=== PATIENT | male | born 1970 | race Hispanic/Latino ===

== ENCOUNTER 2019-09-18 08:08 | Emergency (ER) | payer OTHER ==
[~2019-09-18] VITALS: Ht 185.4 cm; Wt 107.7 kg
[2019-09-18] MEDS ORDERED: ACETAMINOPHEN 500 MG TAB PO ONE (08:45)
[2019-09-18 08:54] LABS: BASO % 0.5 % (0.0-1.0); EOS # 0.2 10^3/uL (0.0-0.5); EOS % 2.6 % (0.0-3.0); HEMATOCRIT 43.7 % (42.0-52.0); HEMOGLOBIN 14.9 g/dl (13.5-17.5); MEAN CORPUSCULAR HEMOGLOBIN 29.7 pg (27.0-33.0); MEAN CORPUSCULAR HGB CONC 34.1 g/dl (32.0-36.5); MEAN CORPUSCULAR VOLUME 87.2 fl (80.0-96.0); MONO # 0.4 10^3/uL (0.0-0.8); MONO % 6.3 % (0.0-5.0); NEUTROPHILS % 60.3 % (36.0-66.0); PLATELET COUNT, AUTOMATED 218 10^3/uL (150-450); RED BLOOD COUNT 5.01 10^6/uL (4.30-6.10); WHITE BLOOD COUNT 6.5 10^3/uL (4.0-10.0)
[2019-09-18 09:16] LABS: BLOOD UREA NITROGEN 22 MG/DL (7-18); CALCIUM LEVEL 7.5 MG/DL (8.5-10.1); CARBON DIOXIDE LEVEL 25 MEQ/L (21-32); CHLORIDE LEVEL 112 MEQ/L (98-107); CPK CREATINE PHOSPHOKINASE 124 U/L (39-308); CREATININE FOR GFR 1.02 MG/DL (0.70-1.30); GLOMERULAR FILTRATION RATE > 60.0 (>56); GLUCOSE, FASTING 216 MG/DL (70-100); MB/CK RELATIVE INDEX 0.81 (< OR =4); NT-PRO BNP 38 PG/ML (<125); SODIUM LEVEL 143 MEQ/L (136-145)
--- NOTE | 2019-09-18 09:57 | REP ---
Right lower extremity Duplex Doppler venous ultrasound: Real time compression and duplex Doppler interrogation of the right lower extremity deep venous system is performed. The right common femoral, superficial femoral and popliteal veins are fully compressible with transducer pressure and demonstrate normal spontaneous and phasic flow, without evidence of deep venous thrombosis. Impression: No evidence of deep venous thrombosis of the right lower extremity femoral popliteal venous system. A complex popliteal cyst measures 3.9 x 0.7 X 3.0 cm. Electronically Signed by Juwan Womack MD 09/18/2019 09:48 A
[2019-09-18 10:26] VITALS: BP 141/96
[2019-09-18 11:01] LABS: HEMOGLOBIN A1c 7.1 %
== END 2019-09-18 10:31 | disposition home or self-care (01) ==
LOC: M ED 08:08
DX: M71.22 Synovial cyst of popliteal space [Baker], left knee (principal); E11.9 Type 2 diabetes mellitus without complications; R60.0 Localized edema; M79.604 Pain in right leg; M79.605 Pain in left leg; F17.210 Nicotine dependence, cigarettes, uncomplicated; Z87.828 Personal history of other (healed) physical injury and trauma

== ENCOUNTER 2019-11-28 10:18 | Emergency (ER) | payer OTHER ==
[~2019-11-28] VITALS: Ht 185.4 cm; Wt 111.6 kg
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
[2019-11-28 12:14] VITALS: BP 121/74
== END 2019-11-28 12:15 | disposition home or self-care (01) ==
LOC: M ED 10:18
DX: S28.0XXA Crushed chest, initial encounter (principal); W31.89XA Contact with other specified machinery, initial encounter; Y92.89 Other specified places as the place of occurrence of the external cause; Y93.89 Activity, other specified; Y99.0 Civilian activity done for income or pay; E11.9 Type 2 diabetes mellitus without complications

== ENCOUNTER → 2020-01-09 | Outpatient (REF) | payer OTHER ==
[2020-01-09 12:31] LABS: BASO % 0.5 % (0.0-1.0); EOS # 0.3 10^3/uL (0.0-0.5); EOS % 4.2 % (0.0-3.0); HEMATOCRIT 44.4 % (42.0-52.0); HEMOGLOBIN 14.8 g/dl (13.5-17.5); MEAN CORPUSCULAR HEMOGLOBIN 29.5 pg (27.0-33.0); MEAN CORPUSCULAR HGB CONC 33.3 g/dl (32.0-36.5); MEAN CORPUSCULAR VOLUME 88.6 fl (80.0-96.0); MONO # 0.5 10^3/uL (0.0-0.8); MONO % 7.5 % (0.0-5.0); NEUTROPHILS # 3.3 10^3/uL (1.5-8.5); NEUTROPHILS % 54.5 % (36.0-66.0); PLATELET COUNT, AUTOMATED 260 10^3/uL (150-450); RED BLOOD COUNT 5.01 10^6/uL (4.30-6.10)
[2020-01-09 12:47] LABS: HEMOGLOBIN A1c 6.5 %
[2020-01-09 13:04] LABS: ALBUMIN 1.4 GM/DL (3.2-5.2); ALT/SGPT 18 U/L (12-78); BILIRUBIN,TOTAL 0.3 MG/DL (0.2-1.0); BLOOD UREA NITROGEN 19 MG/DL (7-18); CALCIUM LEVEL 7.9 MG/DL (8.5-10.1); CARBON DIOXIDE LEVEL 26 MEQ/L (21-32); CHLORIDE LEVEL 111 MEQ/L (98-107); CHOLESTEROL LEVEL 393 MG/DL (<200); CHOLESTEROL RISK RATIO 6.661 (<5); CREATININE FOR GFR 1.03 MG/DL (0.70-1.30); FREE T4 0.88 NG/DL (0.76-1.46); GLOMERULAR FILTRATION RATE > 60.0 (>56); GLUCOSE, FASTING 108 MG/DL (70-100); HDL CHOLESTEROL 59 MG/DL (>40); LDL CHOLESTEROL 303 MG/DL (<100); NON-HDL-C 334 MG/DL; POTASSIUM SERUM 4.5 MEQ/L (3.5-5.1); SODIUM LEVEL 143 MEQ/L (136-145); TOTAL PROTEIN 4.2 GM/DL (6.4-8.2); TRIGLYCERIDES LEVEL 154 MG/DL (<150)
[2020-01-09 13:08] LABS: TOTAL 25(OH) VITAMIN D 13.3 NG/ML (30.0-100.0)
== END ==
LOC: M LAB REF 11:15
PROVIDERS: ATTEND Nurse Practitioner Family
DX: Z13.9 Encounter for screening, unspecified (principal); E55.9 Vitamin D deficiency, unspecified; E11.9 Type 2 diabetes mellitus without complications; F17.210 Nicotine dependence, cigarettes, uncomplicated; M25.511 Pain in right shoulder

== ENCOUNTER 2021-03-14 09:44 | Observation (INO) | payer OTHER ==
[~2021-03-14] VITALS: Ht 188 cm; Wt 98.7 kg
[~2021-03-14 09:44] MED LIST: BENA25CA4 PO; PRED20TA PO
--- OUTSIDE RECORDS SUMMARY | 2021-03-14 09:52 | CCD ---
Author Author [facility] Address Unknown Phone Unavailable Care Team Providers Care Urgent Care Name Role Phone Susan Park Unavailable Unavailable LETTIERE, Linda ALTAMIRANO Unavailable Unavailable LETTIERE, Linda JALLOH PA Unavailable Unavailable LETTIERE, Linda JALLOH PA Unavailable Unavailable LETTIERE, Linda JALLOH PA Unavailable Unavailable LETTIERE, Linda JALLOH PA Unavailable Unavailable LETTIERE, Linda JALLOH PA Unavailable Unavailable LETTIERE, Linda JALLOH PA Unavailable Unavailable LETTIERE, Linda JALLOH PA Unavailable Unavailable LETTIERE, Linda JALLOH PA Unavailable Unavailable LETTIERE, A YEIMI PA Unavailable Unavailable LETTIERE, A YEIMI PA Unavailable Unavailable LETTIERE, A YEIMI PA Unavailable Unavailable LETTIERE, A YEIMI PA Unavailable Unavailable LETTIERE, A YEIMI PA Unavailable Unavailable LETTIERE, A YEIMI PA Unavailable Unavailable LETTIERE, A YEIMI PA Unavailable Unavailable LETTIERE, A YEIMI PA Unavailable Unavailable LETTIERE, A YEIMI PA Unavailable Unavailable LETTIERE, A YEIMI PA Unavailable Unavailable LETTIERE, A YEIMI PA Unavailable Unavailable LETTIERE, A YEIMI PA Unavailable Unavailable LETTIERE, A YEIMI PA Unavailable Unavailable LETTIERE, A YEIMI PA Unavailable Unavailable LETTIERE, A YEIMI PA Unavailable Unavailable LETTIERE, A YEIMI PA Unavailable Unavailable LETTIERE, A YEIMI PA Unavailable Unavailable LETTIERE, A YEIMI PA Unavailable Unavailable LETTIERE, A YEIMI PA Unavailable Unavailable LETTIERE, A YEIMI PA Unavailable Unavailable LETTIERE, A YEIMI PA Unavailable Unavailable LETTIERE, A YEIMI PA Unavailable Unavailable Xavier, A Susan PRODUCT SAFETY CONSULTANT Unavailable Unavailable Xavier, A Susan PRODUCT SAFETY CONSULTANT Unavailable Unavailable Xavier, A Susan PRODUCT SAFETY CONSULTANT Unavailable Unavailable Xavier, A Susan PRODUCT SAFETY CONSULTANT Unavailable Unavailable Xavier, A Susan PRODUCT SAFETY CONSULTANT Unavailable Unavailable Xavier, A Susan PRODUCT SAFETY CONSULTANT Unavailable Unavailable Xavier, A Susan PRODUCT SAFETY CONSULTANT Unavailable Unavailable Xavier, A Susan PRODUCT SAFETY CONSULTANT Unavailable Unavailable Xavier, A Susan PRODUCT SAFETY CONSULTANT Unavailable Unavailable Xavier, A Susan PRODUCT SAFETY CONSULTANT Unavailable Unavailable Xavier, A Susan PRODUCT SAFETY CONSULTANT Unavailable Unavailable Xavier, A Susan PRODUCT SAFETY CONSULTANT Unavailable Unavailable Xavier, A Susan PRODUCT SAFETY CONSULTANT Unavailable Unavailable Xavier, A Susan PRODUCT SAFETY CONSULTANT Unavailable Unavailable Xavier, A Susan PRODUCT SAFETY CONSULTANT Unavailable Unavailable Xavier, A Susan PRODUCT SAFETY CONSULTANT Unavailable Unavailable Xavier, A Susan PRODUCT SAFETY CONSULTANT Unavailable Unavailable Xavier, A Susan PRODUCT SAFETY CONSULTANT Unavailable Unavailable Xavier, A Susan PRODUCT SAFETY CONSULTANT Unavailable Unavailable Xavier, A Susan PRODUCT SAFETY CONSULTANT Unavailable Unavailable Xavier, A Susan PRODUCT SAFETY CONSULTANT Unavailable Unavailable Xavier, A Susan PRODUCT SAFETY CONSULTANT Unavailable Unavailable Xavier, A Susan PRODUCT SAFETY CONSULTANT Unavailable Unavailable Xavier, A Susan PRODUCT SAFETY CONSULTANT Unavailable Unavailable Xavier, A Susan PRODUCT SAFETY CONSULTANT Unavailable Unavailable Xavier, A Susan PRODUCT SAFETY CONSULTANT Unavailable Unavailable Xavier, A Susan PRODUCT SAFETY CONSULTANT Unavailable Unavailable Xavier, A Susan PRODUCT SAFETY CONSULTANT Unavailable Unavailable Xavier, A Susan PRODUCT SAFETY CONSULTANT Unavailable Unavailable Xavier, A Susan PRODUCT SAFETY CONSULTANT Unavailable Unavailable Xavier, A Susan PRODUCT SAFETY CONSULTANT Unavailable Unavailable Re-disclosure Warning The records that you are about to access may contain information from federally-assisted alcohol or drug abuse programs. If such information is present, then the following federally mandated warning applies: This information has been disclosed to you from records protected by federal confidentiality rules (42 CFR part 2). The federal rules prohibit you from making any further disclosure of this information unless further disclosure is expressly permitted by the written consent of the person to whom it pertains or as otherwise permitted by 42 CFR part 2. A general authorization for the release of medical or other information is NOT sufficient for this purpose. The Federal rules restrict any use of the information to criminally investigate or prosecute any alcohol or drug abuse patient.The records that you are about to access may contain highly sensitive health information, the redisclosure of which is protected by Article 27-F of the [facility] Public Health law. If you continue you may have access to information: Regarding HIV / AIDS; Provided by facilities licensed or operated by the [facility] Office of Mental Health; or Provided by the [facility] Office for People With Developmental Disabilities. If such information is present, then the following [facility] mandated warning applies: This information has been disclosed to you from confidential records which are protected by state law. State law prohibits you from making any further disclosure of this information without the specific written consent of the person to whom it pertains, or as otherwise permitted by law. Any unauthorized further disclosure in violation of state law may result in a fine or snf sentence or both. A general authorization for the release of medical or other information is NOT sufficient authorization for further disc losure. Family History Family Member Name Family Member Gender Family Member Status Date o f Status Description Data Source(s) Unknown Male Problem MEDENT ([facility]) Encounters Encounter Providers Location Date Indications Data Source(s ) Outpatient Attender: YEIMI wall 03/04/2021 07:45:00 AM EST [facility] ([facility]) Outpatient Attender: YEIMI hecky 03/29/2020 01:50:00 PM EST [facility] ([facility]) Outpatient Attender: Susan MILLER 01/22/2020 08:4 9:59 AM EDT [facility] Outpatient Attender: GERMÁN MILLER 01/15/2020 04:00:08 P M EDT [facility] Immunizations Vaccine Date Status Description Data Source(s) COVID-19 VACCINE Martha 07/17/2020 12:00:00 AM EDT completed [employer]SIIS Vaccine Series Complete: YESThis Data wa s Submitted to [facility] Via [facility]. Medications Medication Brand Name Start Date Product Form Dose Route Admi nistrative Instructions Pharmacy Instructions Status Indications Reaction Description Data Source(s) No Active Medications 03/14/2021 12:00:00 AM EST active [facility] ([facility] [place]) No Active Medications 03/04/2021 12:00:00 AM EST completed [facility] ([facility], [facility]) Amoxicillin 875 MG Oral Tablet Amoxicillin 03/29/2020 12:00:00 AM EST active [facility] ([facility] [place]) Prednisone 20 MG Oral Tablet Prednisone 03/29/2020 12:00:00 AM EST active MED[facility] ([facility], [facility]) Insurance Providers Payer name Policy type / Coverage type Policy ID Covered alliance party ID Covered alliance party's relationship to simons Policy Simons Plan Information [facility] (in) Commercial [id number] Self [id number] [employer] (in) Commercial [id number] Self [id number] Managed Care - [facility] P [id number] S [id number] [facility] P [id number] M [id number] [facility] P [id number] M [id number] [facility] Commercial P [id number] M [id number] [facility] P [id number] M [id number] [facility] Complete Solar PLUS [id number] WI2 [id number] OTHER WORKERS COMPENSATION [id number] SP [id number] FX [employer] for Parents 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 [id number] WI2 [id number] [facility] O [id number] P [id number] Managed Care - [facility] P [id number] S [id number] [facility] P [id number] M [id number] [facility] [id number] SP [id number] [facility] PL[facility] [id number] WI2 [phone] Problems, Conditions, and Diagnoses Code Display Name Description Problem Type Effective Dates Data Source(s) 98872077 Essential hypertension Essential hypertension Problem 02/10/2020 12:00:00 AM EST [facility] ([facility], ) [id number] Pain in bilateral legs Pain in bilateral legs 01/15/2020 03:59:14 PM EDT [facility] 272.2 Mixed hyperlipidemia Mixed hyperlipidemia 01/14 03:59:14 PM EDT [facility] 401.9 Essential hypertension Essential hypertension 01/15/2020 03:59:14 PM EDT [facility] V65.8 Person consulting for explanation of exa mination or test findings Person consulting for explanation of examination or test findings 01/15/2020 03:59:14 PM EDT [facility] Surgeries/Procedures Procedure Description Date Indications Data Source(s) OFFICE OUTPATIENT VISIT 15 MINUTES 03/04/2021 12:00:00 AM EST [facility] ([facility], [facility]) Results ID Date Data Source [id number] 03/04/2021 12:00:00 AM EST [facility] Name Value Range Interpretation Code Description Data Myrna rce(s) Supporting Document(s) SARS-CoV2 Rapid Antigen Positive [facility] This lab was ordered by [facility] and reported by [facility]. ID Date Data Source [id number] 03/29/2020 12:00:00 AM EST [facility] Name Value Range Interpretation Code Description Data Myrna rce(s) Supporting Document(s) SARS coronavirus 2 Ag [facility] This lab was ordered by [facility] and reported by [facility]. ID Date Data Source [id number] 01/15/2020 02:37:07 PM EDT [facility] Measurements & CalculationsHeight: 73 inches (6 ft. 1 in.) 185.42 cm Weight: 245.8 pounds 111.73 kg Body Mass Index (BMI): 32.55BMI Interpretation: ObeseBody Surface Area (BSA): 2.35Weight Management Education Done (Nutrition/Physical Activity)Vital SignsTemperature: 97.7FPulse Rate: 93 beats/minuteRespiratory Rate: 16 respirat ions/minuteBlood Pressure: 150/95 O2 Saturation: 98% Vital Signs performed by: Brynn Montague MA, January 15, 2020 2:50 PMVital Signs performed by: Brynn Montague MA, January 15, 2020 2:50 PMInitial Intake Information From: patientRoom #: 9Infectious Disease / Travel ScreeningRecent travel for you or any close contacts? NoHave you had any close contact with anyone diagnosed with or under investigation for COVID-19 (coronavirus)? NoFever? NoRespiratory symptoms: cough, cold, congestion, shortness of breath, difficulty breathing? NoLoss of smell? NoLoss of taste? NoSmoking, Tobacco, Vaping or Smoke Exposure StatusSmoke Status: current every day smokerTobacco Use: YesAdv to Quit: YesDo you vape? NoPassive Smoke Exposure: YesPassive Smoke Exposure comments: coworkersHealthcare HistorySince your last office visit...Have you been admitted to the hospital? NoHave you been to an emergency room (ER) or urgent care clinic? NoHave you seen another healthcare provider? NoHave you seen a dentist? NoIntake performed by: Brynn Montague MA, January 15, 2020 2:40 PMRate Your HealthIn general, would you say your health is? GoodPain AssessmentAre you currently having any pain which... You would like your provider to address? No Affects your activity level? NoDepression Screening - PHQ-2Over the last two weeks, have you... Had little interest or pleasure in doing things? Not at all Been feeling down, depressed, or hopeless? Not at all PHQ-2 Score: 0Anxiety Screening - ARNIE-2Over the last two weeks, have you been... Feeling nervous, anxious, or on edge? Not at all Unable to stop or control worrying? Not at all ARNIE-2 Score: 0Food InsecurityWithin the past year...Did you worry whether your food would run out before you got money to buy more? Never trueWas there a time when the food you bought didn't last and you didn't have money to get more? Never trueScreening, Brief Intervention, & Referral to Treatment (SBIRT)Pre-Screening Questions How many times have you have 5 or more drinks in a day? 0How many times have you used an illegal drug or used a prescription medication for a non-medical reason? 0Patient History Medical History:No known medical historySurgical History:Hernia Mesh surgery Umbilica, groinMetal plate left side of face30 screws.Family History:No known family historyCancer - Unknown (Father)Paternal Uncles - Kidney diseaseSocial/Personal History: Advised to Quit/Tobacco Education: YesChief Complaintfollow-up visit labs room 9History of Present Illness (HPI)49 YO male here for lab follow up. Pt reports swelling in lower extremities. Pt states there is a history of kidney disease in his family. Pt would like referral for colonoscopy. Pt states healthy diet and physicalk activities. Pt refused flu vaccine today. HPI performed by: Susan DUNLAP, January 15, 2020 3:46 PMTransitions of Care InboundProblem ReviewProblem List was reviewed and/or updated during this visit.Medication Reconciliation & ReviewMedication List was reviewed and/or updated during this visit, including review of any mkic-mge-pclsleq medications, herbal therapies, and/or supplements.Allergy ReviewAllergy List was reviewed and/or updated during this visit.Adult Preventive CareProvider Calculated and Reviewed all Clinical Protocols for patient today. Screening Tobacco Screening: Smoking Status: current every day smoker (01/15/2020) Tobacco Use: Currently (01/15/2020) Advised to Quit: Yes (01/15/2020)Labs/Meds/Other Counseling-Nutrition and Physical Activity:BMI Interpretation: Obese (01/15/2020) Counseling: Done (01/15/2020) Physical Activity: Done (01/15/2020)Cancer Screening Review of Systems General: Denies loss of appetite, chills, dizziness, fatigue, fever, continued fever, headache, feeling ill, sweats, night sweats, sleep disturbances, weight loss. Eyes: Denies blurring of vision, double vision, irritation, discharge, vision loss, eye pain, eye swelling, droopy eyelid, sensitivity to light, redness, itching. Ears/Nose/Throat: Denies earache, ear discharge, ringing in ears, decreased hearing, nasal congestion, nosebleeds, runny nose, sore throat, hoarseness, difficulty swallowing, dry mouth, tooth pain, bleeding gums, swollen glands. Cardiovascular: Denies chest pain, palpitations, feeling faint, trouble breathing w/exertion, SOB upon lying down, SOB at night, peripheral edema, elevated blood pressure, decreased heart rate. Respiratory: Denies cough, difficulty breathing, shortness of breath, excessive sputum, coughing up blood, wheezing, chest pain. Gastrointestinal: Denies nausea, vomiting, bleeding, burning, itching, irritation, cramps, diarrhea, constipation. Genitourinary: Denies urinary incontinence, pain with urination, burning with urination, urinary frequency, urinary hesitancy, urinary urgency, urinary urgency at night, incomplete emptying, blood in urine. Musculoskeletal: Complains of leg pain. Denies back pain, joint pain, other pain-see comments, joint swelling, body aches, muscle aches, muscle cramps, muscle weakness, stiffness, recent injury. Skin: Denies rash, hives, redness, itching, dryness, nail changes, suspicious lesions, athlete's foot, rash on palms, rash on bottom of feet. Neurologic: Denies muscle impairment, weakness, numbness/tingling, seizures, slurred speech, feeling faint, tremors, vertigo, paralysis on one side, paralysis on both sides. Psychiatric: Denies depression, anxiety, memory loss, mental disturbance, suicidal ideation, homicidal ideation, hallucinations, paranoia, feeling stressed, hearing voices. Endocrine: Denies cold intolerance, heat intolerance, excessive thirst, excessive hunger, excessive urination, weight loss, weight gain. Heme/Lymphatic: Denies abnormal bruising, bleeding, enlarged lymph nodes. Physical ExamGeneral Appearance: well nourished, well hydrated, no acute distressEyes, External: conjunctivae and lids normal, EOMIRespiratory, Auscultation: clear to auscultation bilaterally; no rales, rhonchi, or wheezesRespiratory, Effort: no intercostal retractions or use of accessory musclesCardiovascular, Auscultation: S1, S2 audible; no murmur, rub, or gallop; RRRPeripheral Circulation: +2 edma, bilat LE Abdomen: soft, non-tender, no masses, bowel sounds normalGait & Station: normalSkin, Inspection: no rashes, lesions, or ulcerationsOrientation: oriented to time, place, and personMood & Affect: no depression, anxiety, or agitationJudgment & Insight: intactCare Management Plan Transitions of CareInboundRate Your HealthIn general, would you say your health is? GoodAssessment & Plan Problems:Added: Pain in bilateral legs (WOC40-P35.604) Assessment: Instructions: We have made a referral to a vascular specialist for you today. We will contact you to set this up.Mixed hyperlipidemia (ICD-272.2) (NYF08-F21.2) Assessment: Instructions: cholesterol level elevated, we have sent a prescription to your pharmacy to start cholesterol medication. Please take medication as prescribed. Please report any major side effects. Please try to maintain lifestyle changes to include healthy diet and physical activities. Please try to limit sugars, carbohydrates, sodium and fats in your diet. Please try to maintain at least 30 minutes per day of physical activities.Essential hypertension (ICD-401.9) (ZPX39-P76) Assessment: Instructions: We have sent a prescription to start Lisinopril for your blood pressure. Please take medication as prescrbed. Please report any major side effects.Person consulting for explanation of examination or test findings (ICD-V65.8) (IMP21-J27.2) Assessment: Instructions: We have reviewed your lab results with you today.Essential hypertension (ICD-401.9) (SKI36-C17) Assessment: BP elevated. Pt asymtomatic at this time. script sent to start lisinopril.Assessed:Bilateral localized swelling of lower legs (ICD10- R22.43) Assessment: Instructions: Pain in bilateral legs: We have made a referral to a vascular specialist for you today. We will contact you to set this up.lease try to avoid added sodium in your diet. Please try to keep legs elevated. Please try to maintain adequate intake of water daily.Type 2 diabetes mellitus without complications (ADZ46-S76.9) Assessment: Instructions: Your HGA1c is 6.5. this indicates well managed type 2 diabetes. Please continue lifestyle changes to include healthy diet band physical activities. Please try to limit sugars, carbohydrates, sodium and fats in your diet.Patient Instructions/Care Plan: Pain in bilateral legs: We have made a referral to a vascular specialist for you today. We will contact you to set this up.Bilateral localized swelling of lower legs: Pain in bilateral legs: We have made a referral to a vascular specialist for you today. We will contact you to set this up.lease try to avoid added sodium in your diet. Please try to keep legs elevated. Please try to maintain adequate intake of water daily.Mixed hyperlipidemia: cholesterol level elevated, we have sent a prescription to your pharmacy to start cholesterol medication. Please take medication as prescribed. Please report any major side effects. Please try to maintain lifestyle changes to include healthy diet and physical activities. Please try to limit sugars, carbohydrates, sodium and fats in your diet. Please try to maintain at least 30 minutes per day of physical activities.Essential hypertension: We have sent a prescription to start Lisinopril for your blood pressure. Please take medication as prescrbed. Please report any major side effects.Person consulting for explanation of examination or test findings: We have reviewed your lab results with you today.Type 2 diabetes mellitus without complications: Your HGA1c is 6.5. this indicates well managed type 2 diabetes. Please continue lifestyle changes to include healthy diet band physical activities. Please try to limit sugars, carbohydrates, sodium and fats in your diet. Plan developed in collaboration with patient and/or familyMedications:LISINOPRIL 5 MG ORAL TABLETATORVASTATIN CALCIUM 40 MG ORAL TABLETMedication Changes:New Prescription:ATORVASTATIN CALCIUM 40 MG ORAL TABLET-take one tablet by mouth daily at nights. Qty: 30[Tablet] Refills: 2 Method: ElectronicLISINOPRIL 5 MG ORAL TABLET-take one tablet by mouth daily Qty: 30[Tablet] Refills: 2 Method: ElectronicAllergies:No Known Allergies (updated 07/26/2018) Orders:Gastroenterology Consult [CPT-73349] Other Referral [[id number]] COMP METABOLIC PANEL [CPT-75108] CBC W/DIFF [CPT-87314] HgBA1c [CPT-89866] LIPID PANEL [CPT-32610] Vitamin D 250H Unspecified [CPT-84842] URINALYSIS [CPT-36731] Urine Culture [CPT-72256] PROSTATE CANCER SCREENING; PSA TEST [CPT-G0103] Adult - Ofc Vst, EST, Level IV [CPT-03893] Follow-Up Return to clinic: 3 month for follow up. Clinical Visit Summary CompletedMedications:LISINOPRIL 5 MG ORAL TABLET (LISINOPRIL) take one tablet by mouth daily #30[Tablet] x 2 Route:ORAL Entered and Authorized by: Susan DUNLAP Method used: Electronically to [facility] ([employer]) [id number] [place] [address] Note to Pharmacy: Route: ORAL; Indications: ESSENTIAL HYPERTENSION RxID: [id number] CALCIUM 40 MG ORAL TABLET (ATORVASTATIN CALCIUM) take one tablet by mouth daily at nights. #30[Tablet] x 2 Route:ORAL Entered and Authorized by: Susan DUNLAP Method used: Electronically to [facility] ([employer]) [id number] [place] [address] Note to Pharmacy: Route: ORAL; Indications: MIXED HYPERLIPIDEMIA RxID: [id number] signed by Susan DUNLAP on 01/22/2020 at 8:49 AM Name Value Range Interpretation Code Description Data Myrna rce(s) Supporting Document(s) Procedure Social History Code Duration Value Status Description Data Source(s ) Smoking 03/29/2020 12:00:00 AM EST Patient has never smoked co mpleted Patient has never smoked [facility] ([facility]) Vital Signs ID Date Data Source UNK Name Value Range Interpretation Code Description Data Source(s) Systolic blood pressure 121 mm[Hg] 121 mm[Hg] M EDENT ([facility], [facility]) Diastolic blood pressure 83 mm[Hg] 83 mm[Hg] [facility] ([facility]) Heart rate 104 /min 104 /min [facility] ([facility]) Respiratory rate 22 /min 22 /min [facility] ( [facility], [facility]) Oxygen saturation in Arterial blood by Pulse oximetry 98 % 98 % [facility] ([facility], [facility]) Body temperature 99.5 [degF] 99.5 [degF] [facility] ([facility], [facility]) Body weight 210.00 [lb_av] 210.00 [lb_av] MEDEN T ([facility], [facility]) Body height 74 [in_i] 74 [in_i] [facility] 6'2" Body mass index (BMI) [Ratio] 27.0 kg/m2 27.0 k g/m2 [facility]) Systolic blood pressure 134 mm[Hg] 134 mm[Hg] M EDENT ([facility], [facility]) Diastolic blood pressure 93 mm[Hg] 93 mm[Hg] [facility] [facility] ([facility], [facility]) Heart rate 96 /min 96 /min [facility] ([facility] [place], [facility]) Respiratory rate 18 /min 18 /min [facility] ( [facility], [facility]) Oxygen saturation in Arterial blood by Pulse oximetry 97 % 97 % [facility] ([facility], [facility]) Body temperature 97.9 [degF] 97.9 [degF] [facility]) Body weight 220.00 [lb_av] 220.00 [lb_av] MEDEN T ([facility], [facility]) Body height 74 [in_i] 74 [in_i] [facility] ([facility] 6'2" Body mass index (BMI) [Ratio] 28.2 kg/m2 28.2 k g/m2 [facility] ([facility], [facility]) Systolic blood pressure 154 mm[Hg] 154 mm[Hg] M EDENT ([facility], [facility]) Diastolic blood pressure 103 mm[Hg] 103 mm[Hg] [facility] ([facility] [place], [facility]) Heart rate 94 /min 94 /min [facility] ([facility] [place], [facility]) Respiratory rate 16 /min 16 /min [facility] Oxygen saturation in Arterial blood by Pulse oximetry 98 % 98 % [facility] ([facility]) Body temperature 98.3 [degF] 98.3 [degF] [facility] ([facility]) Body weight 245.00 [lb_av] 245.00 [lb_av] MED[facility] T ([facility]) Body height 74 [in_i] 74 [in_i] [facility] ([facility]) 6'2" Body mass index (BMI) [Ratio] 31.5 kg/m2 31.5 k g/m2 [facility] ([facility]) Body weight 112.153 kg 112.153 kg [facility] ([facility], ) [place] body weight 190 [lb_av] 190 [lb_av] MEDEN T ([facility], ) Body mass index (BMI) [Ratio] 31.7 kg/m2 31.7 k g/m2 [facility] ([facility], ) Body weight 247.25 [lb_av] 247.25 [lb_av] [facility], ) Body height 74 [in_i] 74 [in_i] [facility] ([facility], ) 6'2" Diastolic blood pressure 72 mm[Hg] 72 mm[Hg] [facility] ([facility], ) Systolic blood pressure 154 mm[Hg] 154 mm[Hg] Juan COBURN ([facility], )
--- OUTSIDE RECORDS SUMMARY | 2021-03-14 09:52 | CCD | Continuity of Care Document ---
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 Name Role Phone [employer] AUTM [phone] Problems Description No Information Available Social History Type Date Description Comments Sex Unknown ETOH Use Denies alcohol use Tobacco Use Start: Unknown Patient is a current smoker, smo kes every day 1 PPD Smoking Status Reviewed: 03/29/20 Patient is a current smoker, smokes every day 1 PPD Allergies and adverse reactions Description No Known Drug Allergies Medications Active Medications SIG Qnty Indications Ordering Provide r Date Formula 44 Cough And Cold Unknown History Medications No Active Medications Unknown - 03/04/2021 Immunizations Description No Information Available Vital Signs Date Vital Result Comment 03/04/2021 10:06am BP Systolic 134 mmHg BP Diastolic 93 mmHg Heart Rate 96 /min Respiratory Rate 18 /min O2 % BldC Oximetry 97 % Body Temperature 97.9 F Weight 220.00 lb Height 74 inches 6'2" BMI (Body Mass Index) 28.2 kg/m2 Pain Level 5 03/29/2020 4:09pm BP Systolic 154 mmHg BP Diastolic 103 mmHg Heart Rate 94 /min Respiratory Rate 16 /min O2 % BldC Oximetry 98 % Body Temperature 98.3 F Weight 245.00 lb Height 74 inches 6'2" BMI (Body Mass Index) 31.5 kg/m2 Pain Level 5 Results Description No Information Available Procedures Date Code Description Status 03/04/2021 51365 Office/Outpatient Established Lo w MDM 20-29 Min Completed Medical Devices Description No Information Available Encounters Type Date Location Provider Dx Diagnosis Office Visit 03/04/2021 8:45a Main Office ADARSH Clarke J06 .9 Acute upper respiratory infection, unspecified U07.1 Covid-19 Assessments Date Code Description Provider 03/04/2021 J06.9 Acute upper respiratory infectio n, unspecified ADARSH Clarke 03/04/2021 U07.1 Covid-19 ADARSH Adair Plan of Treatment No Information Available Functional Status Description No Information Available Mental Status Description No Information Available Referrals Description No Information Available
--- OUTSIDE RECORDS SUMMARY | 2021-03-14 09:52 | CCD | Continuity of Care Document ---
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
[2021-03-14 14:49] LABS: BASO % 0.2 % (0.0-1.0); EOS # 0.1 10^3/uL (0.0-0.5); EOS % 1.4 % (0.0-3.0); HEMATOCRIT 38.1 % (42.0-52.0); HEMOGLOBIN 12.7 g/dl (13.5-17.5); LYMPH # 1.5 10^3/uL (1.5-5.0); LYMPH % 17.8 % (24.0-44.0); MEAN CORPUSCULAR HEMOGLOBIN 28.9 pg (27.0-33.0); MEAN CORPUSCULAR HGB CONC 33.3 g/dl (32.0-36.5); MEAN CORPUSCULAR VOLUME 86.8 fl (80.0-96.0); MONO # 0.9 10^3/uL (0.0-0.8); MONO % 10.5 % (2.0-8.0); NEUTROPHILS # 6.1 10^3/uL (1.5-8.5); NEUTROPHILS % 69.8 % (36.0-66.0); PLATELET COUNT, AUTOMATED 244 10^3/uL (150-450); RED BLOOD COUNT 4.39 10^6/uL (4.30-6.10); WHITE BLOOD COUNT 8.7 10^3/uL (4.0-10.0)
--- OUTSIDE RECORDS SUMMARY | 2021-03-14 14:55 | CCD ---
Author Author [facility] Organization [facility] Address Unknown Phone Unavailable Care Team Providers Care Business Management Specialist Name Role Phone Susan Park Unavailable Unavailable LETTIERE, Linda ALTAMIRANO Unavailable Unavailable LETTIERE, Linda ALTAMIRANO Unavailable Unavailable LETTIERE, Linda JALLOH PA Unavailable Unavailable LETTIERE, Linda JALLOH PA Unavailable Unavailable LETTIERE, Linda JALLOH PA Unavailable Unavailable LETTIERE, Linda ALTAMIRANO Unavailable Unavailable LETTIERE, Linda ALTAMIRANO Unavailable Unavailable [...] LETTIERE, A YEIMI PA Unavailable Unavailable LETTIERE, Linda JALLOH PA Unavailable Unavailable LETTIERE, A YEIMI PA Unavailable Unavailable LETTIERE, Linda JALLOH PA Unavailable Unavailable LETTIERE, Linda JALLOH PA Unavailable Unavailable LETTIERE, Linda JALLOH PA Unavailable Unavailable LETTIERE, A YEIMI PA Unavailable Unavailable LETTIERE, A YEIMI PA Unavailable Unavailable LETTIERE, A YEIMI PA Unavailable Unavailable LETTIERE, A YEIMI PA Unavailable Unavailable LETTIERE, A YEIMI PA Unavailable Unavailable LETTIERE, A YEIMI PA Unavailable Unavailable LETTIERE, A YEIMI PA Unavailable Unavailable MEET, MARK PA Unavailable Unavailable MEET, MARK PA Unavailable Unavailable MEET, MARK PA Unavailable Unavailable MEET, MARK PA Unavailable Unavailable MEET, MARK PA Unavailable Unavailable MEET, MARK PA Unavailable Unavailable MEET, MARK PA Unavailable Unavailable MEET, MARK PA Unavailable Unavailable MEET, MARK PA Unavailable Unavailable MEET, MARK PA Unavailable Unavailable MEET, MARK PA Unavailable Unavailable MEET, MARK PA Unavailable Unavailable MEET, MARK PA Unavailable Unavailable MEET, MARK PA Unavailable Unavailable MEET, MARK PA Unavailable Unavailable MEET, MARK PA Unavailable Unavailable MEET, MARK PA Unavailable Unavailable MEET, MARK PA Unavailable Unavailable MEET, MARK PA Unavailable Unavailable MEET, MARK PA Unavailable Unavailable MEET, MARK PA Unavailable Unavailable MEET, MARK PA Unavailable Unavailable MEET, MARK PA Unavailable Unavailable MEET, MARK PA Unavailable Unavailable MEET, MARK PA Unavailable Unavailable MEET, MARK PA Unavailable Unavailable MEET, MARK PA Unavailable Unavailable MEET, MARK PA Unavailable Unavailable MEET, MARK PA Unavailable Unavailable MEET, MARK PA Unavailable Unavailable MEET, MARK PA Unavailable Unavailable MEET, MARK PA Unavailable Unavailable MEET, MARK PA Unavailable Unavailable MEET, MARK PA Unavailable Unavailable MEET, MARK PA Unavailable Unavailable MEET, MARK PA Unavailable Unavailable Xavier, A Susan STAIN WIPER Unavailable Unavailable Xavier, A Susan STAIN WIPER Unavailable Unavailable Xavier, A Susan STAIN WIPER Unavailable Unavailable Xavier, A Susan STAIN WIPER Unavailable Unavailable Xavier, A Susan STAIN WIPER Unavailable Unavailable Xavier, A Susan STAIN WIPER Unavailable Unavailable Xavier, A Susan STAIN WIPER Unavailable Unavailable Xavier, A Ssuan STAIN WIPER Unavailable Unavailable Xavier, A Susan STAIN WIPER Unavailable Unavailable Xavier, A Susan STAIN WIPER Unavailable Unavailable Xavier, A Susan STAIN WIPER Unavailable Unavailable Xavier, A Susan STAIN WIPER Unavailable Unavailable Xavier, A Susan STAIN WIPER Unavailable Unavailable Xavier, A Susan STAIN WIPER Unavailable Unavailable Xavier, A Susan STAIN WIPER Unavailable Unavailable Xavier, A Susan STAIN WIPER Unavailable Unavailable Xavier, A Susan STAIN WIPER Unavailable Unavailable Xavier, A Susan STAIN WIPER Unavailable Unavailable Xavier, A Susan STAIN WIPER Unavailable Unavailable Xavier, A Susan STAIN WIPER Unavailable Unavailable Xavier, A Susan STAIN WIPER Unavailable Unavailable Xavier, A Susan STAIN WIPER Unavailable Unavailable Xavier, A Susan STAIN WIPER Unavailable Unavailable Xavier, A Ussan STAIN WIPER Unavailable Unavailable Xavier, A Susan STAIN WIPER Unavailable Unavailable Xavier, A Susan STAIN WIPER Unavailable Unavailable Xavier, A Susan STAIN WIPER Unavailable Unavailable Xavier, A Susan STAIN WIPER Unavailable Unavailable Xavier, A Susan STAIN WIPER Unavailable Unavailable Xavier, A Susan STAIN WIPER Unavailable Unavailable Xavier, A Susan STAIN WIPER Unavailable Unavailable Re-disclosure Warning The records that [...] is protected by Article 27-F of the [facility] Public Health law. If you continue you may have access to information: Regarding HIV / AIDS; Provided by facilities licensed or operated by the [facility] Office of Mental Health; or Provided by the [facility] Office for People With Developmental Disabilities. If such information is present, then the following [facility] mandated warning applies: This information has been [...] law may result in a fine or group home sentence or both. A general authorization for the release of medical or other information is NOT sufficient authorization for further disc losure. Family History Family Member Name Family Member Gender Family Member Status Date o f Status Description Data Source(s) Unknown Male Problem [facility] ([facility]) Encounters Encounter Providers Location Date Indications Data Source(s ) Outpatient Attender: MARK Crespo Prima ry 03/14/2021 07:10:00 AM EST [facility] ([facility] Outpatient Attender: YEIMI Crespo Prim mae 03/04/2021 07:45:00 AM EST [facility] ([facility]) Outpatient Attender: YEIMI Crespo Prim mae 03/29/2020 01:50:00 PM EST [facility] ([facility]) [facility]: [facility] 01/22/2020 08:4 9:59 AM EDT [facility] Outpatient Attender: GERMÁN Park [facility] 01/15/2020 04:00:08 P M EDT [facility] Immunizations Vaccine Date Status Description Data Source(s) COVID-19 VACCINE Martha 07/17/2020 12:00:00 AM EDT completed [facility] Vaccine Series Complete: YESThis Data wa s Submitted to [facility] Via [facility]. Medications Medication Brand Name Start Date Product Form Dose Route Admi nistrative Instructions Pharmacy Instructions Status Indications Reaction Description Data Source(s) No Active Medications 03/14/2021 12:00:00 AM EST active [facility] ([facility], [facility]) No Active Medications 03/04/2021 12:00:00 AM EST completed [facility] ([facility], [facility]) Amoxicillin 875 MG Oral Tablet Amoxicillin 03/29/2020 12:00:00 AM EST active [facility] ([facility]) Prednisone 20 MG Oral Tablet Prednisone 03/29/2020 12:00:00 AM EST active [facility] ([facility]) Insurance Providers Payer name Policy type / Coverage type Policy ID Covered alliance party ID Covered alliance party's relationship to simons Policy Simons Plan Information [facility] (pr) Commercial [id number] Self [id number] [facility] (pr) Commercial [id number] Self [id number] Managed Care - [facility] P [id number] S [id number] [facility] P [id number] M [id number] [facility] P [id number] M [id number] [facility] Commercial P [id number] M [id number] [facility] P [id number] M [id number] [facility] CHOICE PLUS [id number] WI2 [id number] OTHER WORKERS COMPENSATION [id number] SP [id number] FX CAPRAClipMine CAR [facility] [id number] SP [id number] [facility] [id number] WI2 [id number] [employer] MANAGEMENT KENNETH [id number] SP [id number] [facility] [id number] WI2 97 [id number] [facility] [id number] WI2 [id number] [facility] [id number] WI2 97 [id number] [facility] [id number] WI2 [id number] [facility] O [id number] P [id number] Managed Care - [facility] P [id number] S [id number] [facility] P [id number] M [id number] [facility] [id number] SP [id number] [facility] [id number] WI2 [id number] Problems, Conditions, and Diagnoses Code Display Name Description Problem Type Effective Dates Data Source(s) [id number] Essential hypertension Essential hypertension Problem 02/10/2020 12:00:00 AM LEILA ALEJADNRE ([facility], ) [id number] Pain in bilateral legs Pain in bilateral legs 01/15/2020 03:59:14 PM EDT [facility] 272.2 Mixed hyperlipidemia Mixed hyperlipidemia 01/14 03:59:14 PM EDT [facility] 401.9 Essential hypertension Essential hypertension 01/15/2020 03:59:14 PM EDT [facility] V65.8 Person consulting for explanation of exa mination or test findings Person consulting for explanation of examination or test findings 01/15/2020 03:59:14 PM EDT [facility] Surgeries/Procedures Procedure Description Date Indications Data Source(s) OFFICE OUTPATIENT VISIT 15 MINUTES 03/14/2021 12:00:00 AM EST [facility] ([facility]) OFFICE OUTPATIENT VISIT 15 MINUTES 03/04/2021 12:00:00 AM EST [facility] ([facility]) Results ID Date Data Source [id number] 03/04/2021 12:00:00 AM EST [facility] Name Value Range Interpretation Code Description Data Myrna rce(s) Supporting Document(s) SARS-CoV2 Rapid Antigen Positive [facility] This lab was ordered by [facility] and reported by [facility]. ID Date Data Source [id number] 03/29/2020 12:00:00 AM EST [facility] Name Value Range Interpretation Code Description Data Myrna rce(s) Supporting Document(s) SARS coronavirus 2 Ag [facility] This lab was ordered by [facility] and reported by [facility]. ID Date Data Source [id number] 01/15/2020 02:37:07 PM EDT [facility] Measurements & CalculationsHeight: 73 inches (6 ft. 1 in.) 185.42 cm Weight: 245.8 pounds 111.73 kg Body Mass Index (BMI): 32.55BMI Interpretation: ObeseBody Surface Area (BSA): 2.35Weight Management Education Done (Nutrition/Physical Activity)Vital SignsTemperature: 97.7FPulse Rate: 93 beats/minuteRespiratory Rate: 16 respirat ions/minuteBlood Pressure: 150/95 O2 Saturation: 98% Vital Signs performed by: Brynn Montague MA, January 15, 2020 2:50 PMVital Signs performed by: rBynn Montague MA, January 15, 2020 2:50 PMInitial [...] during this visit, including review of any [id number]-fir-[id number] medications, herbal therapies, and/or supplements.Allergy ReviewAllergy List [...] & Plan Problems:Added: Pain in bilateral legs (HZG18-M10.604) Assessment: Instructions: We have made a referral to a vascular specialist for you today. We will contact you to set this up.Mixed hyperlipidemia (ICD-272.2) (WFP00-W21.2) Assessment: Instructions: cholesterol level elevated, we have [...] per day of physical activities.Essential hypertension (ICD-401.9) (XEE30-E82) Assessment: Instructions: We have sent a prescription to start Lisinopril for your blood pressure. Please take medication as prescrbed. Please report any major side effects.Person consulting for explanation of examination or test findings (ICD-V65.8) (VXT79-S30.2) Assessment: Instructions: We have reviewed your lab results with you today.Essential hypertension (ICD-401.9) (HUL25-V77) Assessment: BP elevated. Pt asymtomatic at this [...] water daily.Type 2 diabetes mellitus without complications (YDM13-H82.9) Assessment: Instructions: Your HGA1c is 6.5. this [...] ElectronicAllergies:No Known Allergies (updated 07/26/2018) Orders:Gastroenterology Consult [CPT-53458] Other Referral [[id number]] COMP METABOLIC PANEL [CPT-93010] CBC W/DIFF [CPT-31372] HgBA1c [CPT-05108] LIPID PANEL [CPT-67524] Vitamin D 250H Unspecified [CPT-26457] URINALYSIS [CPT-71064] Urine Culture [CPT-18049] PROSTATE CANCER SCREENING; PSA TEST [CPT-G0103] Adult - Ofc Vst, EST, Level IV [CPT-92082] Follow-Up Return to clinic: 3 month for follow up. Clinical Visit Summary CompletedMedications:LISINOPRIL 5 MG ORAL TABLET (LISINOPRIL) take one tablet by mouth daily #30[Tablet] x 2 Route:ORAL Entered and Authorized by: Susan DUNLAP Method used: Electronically to [id number]* (retail) [id number] [place] [address] Note to Pharmacy: Route: ORAL; Indications: ESSENTIAL HYPERTENSION RxID: [id number] CALCIUM 40 MG ORAL TABLET (ATORVASTATIN CALCIUM) take one tablet by mouth daily at nights. #30[Tablet] x 2 Route:ORAL Entered and Authorized by: Susan DUNLAP Method used: Electronically to [id number]* [employer]) [address] [place] [address] Note to Pharmacy: Route: ORAL; Indications: MIXED HYPERLIPIDEMIA RxID: [id number] signed by Susan DUNLAP on 01/22/2020 at 8:49 AM Name Value Range Interpretation Code Description Data Myrna rce(s) Supporting Document(s) Procedure Social History Code Duration Value Status Description Data Source(s ) Smoking 03/29/2020 12:00:00 AM EST Patient has never smoked co mpleted Patient has never smoked [facility] ([facility]) Vital Signs ID Date Data Source UNK Name Value Range Interpretation Code Description Data Source(s) Body mass index (BMI) [Ratio] 27.0 kg/m2 27.0 k g/m2 [facility] ([facility]) Body height 74 [in_i] 74 [in_i] [facility] ([facility]) 6'2" Body weight 210.00 [lb_av] 210.00 [lb_av] MEDEN T ([facility]) Systolic blood pressure 121 mm[Hg] 121 mm[Hg] M EDENT ([facility]) Diastolic blood pressure 83 mm[Hg] 83 mm[Hg] [facility] ([facility]) Heart rate 104 /min 104 /min [facility] ([facility]) Respiratory rate 22 /min 22 /min [facility] ( [facility]) Oxygen saturation in Arterial blood by Pulse oximetry 98 % 98 % [facility] Body temperature 99.5 [degF] 99.5 [degF] [facility]) Systolic blood pressure 134 mm[Hg] 134 mm[Hg] M EDENT ([facility], [facility]) Diastolic blood pressure 93 mm[Hg] 93 mm[Hg] [facility]) Heart rate 96 /min 96 /min [facility]) Respiratory rate 18 /min 18 /min [facility] ( [facility]) Oxygen saturation in Arterial blood by Pulse oximetry 97 % 97 % [facility] ([facility], [facility]) Body temperature 97.9 [degF] 97.9 [degF] [facility], [facility]) Body weight 220.00 [lb_av] 220.00 [lb_av] MEDEN T ([facility], [facility]) Body height 74 [in_i] 74 [in_i] [facility] ([facility], [facility]) 6'2" Body mass index (BMI) [Ratio] 28.2 kg/m2 28.2 k g/m2 [facility] ([facility], [facility]) Systolic blood pressure 154 mm[Hg] 154 mm[Hg] [facility]) Diastolic blood pressure 103 mm[Hg] 103 mm[Hg] [facility]) Heart rate 94 /min 94 /min [facility]) Respiratory rate 16 /min 16 /min [facility] ( [facility]) Oxygen saturation in Arterial blood by Pulse oximetry 98 % 98 % [facility] ([facility], [facility]) Body temperature 98.3 [degF] 98.3 [degF] [facility] ([facility], [facility]) Body weight 245.00 [lb_av] 245.00 [lb_av] MEDEN T ([facility], [facility]) Body height 74 [in_i] 74 [in_i] [facility]) 6'2" Body mass index (BMI) [Ratio] 31.5 kg/m2 31.5 k g/m2 [facility] ([facility], [facility]) Body weight 112.153 kg 112.153 kg [facility] ([facility], ) [place] body weight 190 [lb_av] 190 [facility]_av] [facility] Body mass index (BMI) [Ratio] 31.7 kg/m2 31.7 k g/m2 [facility] ([facility], ) Body weight 247.25 [lb_av] 247.25 [lb_av] [facility] Body height 74 [in_i] 74 [in_i] [facility] ([facility], ) 6'2" Diastolic blood pressure 72 mm[Hg] 72 mm[Hg] [facility], ) Systolic blood pressure 154 mm[Hg] 154 mm[Hg] Juan COBURN ([facility], )
[2021-03-14 15:24] LABS: ALBUMIN 1.4 GM/DL (3.2-5.2); ALT/SGPT 13 U/L (12-78); BILIRUBIN,DIRECT < 0.1 MG/DL (0.0-0.2); BILIRUBIN,TOTAL 0.2 MG/DL (0.2-1.0); BLOOD UREA NITROGEN 19 MG/DL (7-18); CARBON DIOXIDE LEVEL 27 MEQ/L (21-32); CHLORIDE LEVEL 109 MEQ/L (98-107); CREATININE FOR GFR 1.41 MG/DL (0.70-1.30); FREE T4 0.95 NG/DL (0.76-1.46); GLOMERULAR FILTRATION RATE 56.4 (>56); GLUCOSE, FASTING 88 MG/DL (70-100); LIPASE 91 U/L (73-393); NT-PRO BNP 121 PG/ML (<125); SODIUM LEVEL 142 MEQ/L (136-145); TOTAL PROTEIN 5.2 GM/DL (6.4-8.2)
[2021-03-14] MEDS ORDERED: ISOVUE-370 76% 100ML VIAL As Ordered ONE (15:27)
--- NOTE | 2021-03-14 16:02 | REP ---
INDICATION: R/O PE. COMPARISON: CT 11/28/2019. TECHNIQUE: CT angiogram chest performed following the intravenous administration of 100 cc of Isovue 370. Sagittal and coronal reconstruction images are performed. FINDINGS: Lungs: There is patchy right upper lobe infiltrate as well as left lower lobe infiltrate. Mediastinum: No adenopathy. Pulmonary arteries: There are multiple pulmonary emboli within segmental branches of the lingula and left lower lobe. Right ventricle is normal in size, with no evidence of right heart strain. Maryan: No adenopathy. Axilla: No adenopathy. Pleura: There are tiny bilateral effusions. Heart: Upper limits of normal in size. Thoracic aorta: No aneurysm or dissection. Upper abdominal structures: Small hiatal hernia. Visualized osseous structures: There are degenerative changes of the spine without compression deformity. IMPRESSION: Multiple pulmonary emboli are seen in segmental branches of the lingula and left lower lobe. No evidence of right heart strain. Patchy right upper and left lower lobe infiltrates. Tiny bilateral pleural effusions. <Electronically signed by Juwan Womack > 03/14/21 [id number]
[2021-03-14] MEDS ORDERED: HOME MED LIST COMPLETE! XX SCH (16:05)
[2021-03-14] MEDS ORDERED: ENOXAPARIN 100MG/1ML SYRINGE (J1650 PER 10MG) SC ONE (16:40)
[2021-03-14 17:24] LABS: INR 1.05; PARTIAL THROMBOPLASTIN TIME 38.5 SECONDS (25.9-37.0); PROTHROMBIN TIME 14.1 SECONDS (12.7-14.5)
--- OUTSIDE RECORDS SUMMARY | 2021-03-14 17:24 | CCD ---
Author Author [facility] Organization [facility] Address Unknown Phone Unavailable Care Team Providers Care Impregnating Helper Name Role Phone Susan Park Unavailable Unavailable [...] Linda JALLOH PA Unavailable Unavailable LETTIERE, A YEIIM PA Unavailable Unavailable LETTIERE, A YEIMI PA [...] MARK PA Unavailable Unavailable Xavier, A Susan REJECTOR Unavailable Unavailable Xavier, A Susan REJECTOR Unavailable Unavailable Xavier, A Susan REJECTOR Unavailable Unavailable Xavier, A Susan REJECTOR Unavailable Unavailable Xavier, A Susan REJECTOR Unavailable Unavailable Xavier, A Susan REJECTOR Unavailable Unavailable Xavier, A Susan REJECTOR Unavailable Unavailable Xavier, A Susan REJECTOR Unavailable Unavailable Xavier, A Susan REJECTOR Unavailable Unavailable Xavier, A Susan REJECTOR Unavailable Unavailable Xavier, A Susan REJECTOR Unavailable Unavailable Xavier, A Susan REJECTOR Unavailable Unavailable Xavier, A Susan REJECTOR Unavailable Unavailable Xavier, A Susan REJECTOR Unavailable Unavailable Xavier, A Susan REJECTOR Unavailable Unavailable Xavier, A Susan REJECTOR Unavailable Unavailable Xavier, A Susan REJECTOR Unavailable Unavailable Xavier, A Susan REJECTOR Unavailable Unavailable Xavier, A Susan REJECTOR Unavailable Unavailable Xavier, A Susan REJECTOR Unavailable Unavailable Xavier, A Susan REJECTOR Unavailable Unavailable Xavier, A Susan REJECTOR Unavailable Unavailable Xavier, A Susan REJECTOR Unavailable Unavailable Xavier, A Susan REJECTOR Unavailable Unavailable Xavier, A Susan REJECTOR Unavailable Unavailable Xavier, A Susan REJECTOR Unavailable Unavailable Xavier, A Susan REJECTOR Unavailable Unavailable Xavier, A Susan REJECTOR Unavailable Unavailable Xavier, A Susan REJECTOR Unavailable Unavailable Xavier, A Susan REJECTOR Unavailable Unavailable Xavier, A Susan REJECTOR Unavailable Unavailable Re-disclosure Warning The records that [...] is protected by Article 27-F of the [facility] Public Health law. If you continue you may have access to information: Regarding HIV / AIDS; Provided by facilities licensed or operated by the [facility] Office of Mental Health; or Provided by the [facility] Office for People With Developmental Disabilities. If such information is present, then the following [facility] mandated warning applies: This information has been [...] law may result in a fine or halfway sentence or both. A general authorization for [...] Prima ry 03/14/2021 07:10:00 AM EST [facility] ([facility]) Outpatient Attender: YEIMI Crespo Prim mae 03/04/2021 07:45:00 AM EST [facility] ([facility]) Outpatient Attender: YEIMI Crespo Prim mae 03/29/2020 01:50:00 PM EST [facility] ([facility]) [facility]: [facility] 01/22/2020 08:4 9:59 AM EDT [facility] Outpatient Attender: GERMÁN Park [facility] 01/15/2020 04:00:08 P M EDT [facility] Immunizations Vaccine Date Status Description Data Source(s) COVID-19 VACCINE Martha 07/17/2020 12:00:00 AM EDT completed [facility] Vaccine Series Complete: YESThis Data wa s Submitted to [facility] Via [employer]. Medications Medication Brand Name Start Date Product Form Dose Route Admi nistrative Instructions Pharmacy Instructions Status Indications Reaction Description Data Source(s) No Active Medications 03/14/2021 12:00:00 AM EST active [facility] ([facility], [facility]) No Active Medications 03/04/2021 12:00:00 AM EST completed [facility] ([facility], [facility]) Amoxicillin 875 MG Oral Tablet Amoxicillin 03/29/2020 12:00:00 AM EST active [facility] ([facility], [facility]) Prednisone 20 MG Oral Tablet Prednisone 03/29/2020 12:00:00 AM EST active [facility] ([facility]) Insurance Providers Payer name Policy type / Coverage type Policy ID Covered democrat ID Covered democrat's relationship to simons Policy Simons Plan Information [facility] (pr) Commercial [id number] Self [id number] [facility] (pr) Commercial [id number] Self [id number] Managed Care - [facility] P [id number] S [id number] [facility] P [id number] M [id number] [facility] P [id number] M [id number] [facility] Commercial P [id number] M [id number] [facility] P [id number] M [id number] [facility] [id number] WI2 [id number] OTHER WORKERS COMPENSATION [id number] SP [id number] FX [employer] CAR Terabitz [id number] SP [id number] [facility] [id number] WI2 97 [id number] [employer]NAGEMENT KENNETH [id number] SP [id number] [facility] [id number] WI2 97 [id number] [facility] [id number] WI2 91 [id number] [facility] [id number] WI2 97 [id number] [facility] COMMUNITY PLAN [facility] [id number] WI2 [id number] [facility] O [id number] P [id number] Managed Care - [facility] P [id number] S [id number] [facility] P [id number] M [id number] [facility] COMMUNITY PLAN [facility] [id number] SP [id number] [facility] COMMUNITY PLAN [facility] [id number] WI2 [id number] Problems, Conditions, and Diagnoses Code Display Name Description Problem Type Effective Dates Data Source(s) 18678810 Essential hypertension Essential hypertension Problem 02/10/2020 12:00:00 AM LEILA ALEJANDRE ([facility], ) [id number] Pain in bilateral legs Pain in bilateral legs 01/15/2020 03:59:14 PM EDT [facility] 272.2 Mixed hyperlipidemia Mixed hyperlipidemia 01/14 03:59:14 PM EDT [facility] 401.9 Essential hypertension Essential hypertension 01/15/2020 03:59:14 PM EDT [facility] V65.8 Person consulting for explanation of exa mination or test findings Person consulting for explanation of examination or test findings 01/15/2020 03:59:14 PM EDT [facility] Surgeries/Procedures Procedure Description Date Indications Data Source(s) OFFICE OUTPATIENT VISIT 15 MINUTES 03/14/2021 12:00:00 AM EST [facility] ([facility]) OFFICE OUTPATIENT VISIT 15 MINUTES 03/04/2021 12:00:00 AM EST [facility] ([facility]) Results ID Date Data Source [id number] 03/04/2021 12:00:00 AM EST [facility] Name Value Range Interpretation Code Description Data Myrna rce(s) Supporting Document(s) SARS-CoV2 Rapid [facility]igen [facility] This lab was ordered by [facility] and reported by [facility]. ID Date Data Source [id number] 03/29/2020 12:00:00 AM EST [facility] Name Value Range Interpretation Code Description Data Myrna rce(s) Supporting Document(s) SARS coronavirus 2 Ag [facility] This lab was ordered by [facility] and reported by [facility]. ID Date Data Source [id number] 01/15/2020 02:37:07 PM EDT [facility] Measurements & CalculationsHeight: 73 inches (6 [...] during this visit, including review of any ywfu-hpx-ydrvdyy medications, herbal therapies, and/or supplements.Allergy ReviewAllergy List [...] & Plan Problems:Added: Pain in bilateral legs (WRP41-X81.604) Assessment: Instructions: We have made a referral to a vascular specialist for you today. We will contact you to set this up.Mixed hyperlipidemia (ICD-272.2) (TRO52-W42.2) Assessment: Instructions: cholesterol level elevated, we have [...] per day of physical activities.Essential hypertension (ICD-401.9) (QXV26-G22) Assessment: Instructions: We have sent a prescription to start Lisinopril for your blood pressure. Please take medication as prescrbed. Please report any major side effects.Person consulting for explanation of examination or test findings (ICD-V65.8) (MEV24-V08.2) Assessment: Instructions: We have reviewed your lab results with you today.Essential hypertension (ICD-401.9) (JYM06-F78) Assessment: BP elevated. Pt asymtomatic at this [...] water daily.Type 2 diabetes mellitus without complications (FHA95-P04.9) Assessment: Instructions: Your HGA1c is 6.5. this [...] ElectronicAllergies:No Known Allergies (updated 07/26/2018) Orders:Gastroenterology Consult [CPT-82684] Other Referral [105433] COMP METABOLIC PANEL [CPT-78863] CBC W/DIFF [CPT-86308] HgBA1c [CPT-93626] LIPID PANEL [CPT-02596] Vitamin D 250H Unspecified [CPT-87763] URINALYSIS [CPT-60932] Urine Culture [CPT-06252] PROSTATE CANCER SCREENING; PSA TEST [CPT-G0103] Adult - Ofc Vst, EST, Level IV [CPT-90061] Follow-Up Return to clinic: 3 month for follow up. Clinical Visit Summary CompletedMedications:LISINOPRIL 5 MG ORAL TABLET (LISINOPRIL) take one tablet by mouth daily #30[Tablet] x 2 Route:ORAL Entered and Authorized by: Susan DUNLAP Method used: Electronically to [id number]* (retail) [id number] [place] [address] Note to Pharmacy: Route: ORAL; Indications: ESSENTIAL HYPERTENSION RxID: [id number] CALCIUM 40 MG ORAL TABLET (ATORVASTATIN CALCIUM) take one tablet by mouth daily at nights. #30[Tablet] x 2 Route:ORAL Entered and Authorized by: Susan DUNLAP Method used: Electronically to [id number]* [place]) [address] [place] [address] Note to Pharmacy: Route: ORAL; Indications: MIXED HYPERLIPIDEMIA RxID: [id number] signed by Susan DUNLAP on 01/22/2020 at 8:49 AM Name Value Range Interpretation Code Description Data Myrna rce(s) Supporting Document(s) Procedure Social History Code Duration Value Status Description Data Source(s ) Smoking 03/29/2020 12:00:00 AM EST Patient has never smoked co mpleted Patient has never smoked [facility] ([facility]) Vital Signs ID Date Data Source UNK Name Value Range Interpretation Code Description Data Source(s) Body weight 210.00 [lb_av] 210.00 [lb_av] [facility] T ([facility]) Body height 74 [in_i] 74 [in_i] [facility] ([facility]) 6'2" Body mass index (BMI) [Ratio] 27.0 kg/m2 27.0 k g/m2 [facility] Systolic blood pressure 121 mm[Hg] 121 mm[Hg] M EDENT ([facility]) Diastolic blood pressure 83 mm[Hg] 83 mm[Hg] [facility] ([facility]) Heart rate 104 /min 104 /min [facility] ([facility]) Respiratory rate 22 /min 22 /min [facility] ( [facility]) Oxygen saturation in Arterial blood by Pulse oximetry 98 % 98 % [facility] ([facility], [facility]) Body temperature 99.5 [degF] 99.5 [degF] [facility], [facility]) Systolic blood pressure 134 mm[Hg] 134 mm[Hg] M EDENT ([facility], [facility]) Diastolic blood pressure 93 mm[Hg] 93 mm[Hg] [facility], [facility]) Heart rate 96 /min 96 /min [facility] ([facility], [facility]) Respiratory rate 18 /min 18 /min [facility] ( [facility], [facility]) Oxygen saturation in Arterial blood by Pulse oximetry 97 % 97 % [facility] ([facility], [facility]) Body temperature 97.9 [degF] 97.9 [degF] [facility] ([facility], [facility]) Body weight 220.00 [lb_av] 220.00 [lb_av] [facility] ([facility], [facility]) Body height 74 [in_i] 74 [in_i] [facility] ([facility], [facility]) 6'2" Body mass index (BMI) [Ratio] 28.2 kg/m2 28.2 k g/m2 [facility] ([facility], [facility]) Systolic blood pressure 154 mm[Hg] 154 mm[Hg] [facility], [facility]) Diastolic blood pressure 103 mm[Hg] 103 mm[Hg] [facility] ([facility], [facility]) Heart rate 94 /min 94 /min [facility] ([facility], [facility]) Respiratory rate 16 /min 16 /min [facility] ( [facility], [facility]) Oxygen saturation in Arterial blood by Pulse oximetry 98 % 98 % [facility] ([facility], [facility]) Body temperature 98.3 [degF] 98.3 [degF] [facility] ([facility], [facility]) Body weight 245.00 [lb_av] 245.00 [lb_av] [facility] T ([facility], [facility]) Body height 74 [in_i] 74 [in_i] [facility] ([facility], [facility]) 6'2" Body mass index (BMI) [Ratio] 31.5 kg/m2 31.5 k g/m2 [facility] ([facility], [facility]) Body weight 112.153 kg 112.153 kg [facility] ([facility], ) [place] body weight 190 [lb_av] 190 [lb_av] [facility] Body mass index (BMI) [Ratio] 31.7 kg/m2 31.7 k g/m2 [facility] ([facility], ) Body weight 247.25 [lb_av] 247.25 [lb_av] [facility], ) Body height 74 [in_i] 74 [in_i] [facility] ([facility], ) 6'2" Diastolic blood pressure 72 mm[Hg] 72 mm[Hg] [facility], ) Systolic blood pressure 154 mm[Hg] 154 mm[Hg] Juan COBURN ([facility], )
[2021-03-14 17:58] LABS: FERRITIN 334 NG/ML (26-388); LDH LACTATE DEHYDROGENASE 176 U/L (87-241)
--- NOTE | 2021-03-14 17:58 | HPEPDOC ---
General Date of Admission Mar 14, 2021 at 09:45 Date of Service: Mar 14, 2021 Chief Complaint The patient is a 50-year-old male admitted with a reason for visit of Pulmonary Embolism. History of Present Illness Mr. Cortes is a 50 year old male with COVID who is here with worsening shortness of breath. COVID symptoms started Feb 28, 2021. He initially had SOB, stabbing pain in the back, fever, and headache. He tested positive on Mar 04, 2021 at urgent care. He was put on quarantine. He was getting better, but then on Mar 11, 2021, he started have worsening SOB. He had a subjective fever yest erday (he did not measure). He came into the ED for evaluation. While here, he has been afebrile and non-hypoxic. He is doing well at room air (97%). He does have sinus tachycardia. Patient denies any recent surgery, travel, or hospitalization. CT angio chest was obtained which demonstrated multiple pulmonary emboli in the segmental branches of the lingula and left lower lobe. There is no right heart strain. There are patchy right upper and left lower lobe infiltrates. Admission was requested for PE. When I saw patient, he told me his Bangladeshi is not very good. he did have some difficulty completing sentences. His coworkers had COVID and that's where he thinks he caught COVID. Patient will be placed in observation for PE. Patient also has mild elevation of creatinine. Home Medications No Active Prescriptions or Reported Meds Allergies Coded Allergies: No Known Allergies (Unverified , 09/18/19) Past Medical History Medical History Questionable past medical history. The last time he saw a PCP, they told him he had DM and HTN. Patient was on medication, but made him feel lightheaded/dizzy and unwell. He stopped his medications. Patient's glucose is lowish (88) and blood pressure is good (128/87). He does not need blood pressure medications at this time. We can check HbA1c but does not need insulin at this time. Surgical History 1. Umbilical hernia repair 2. Work related/mechanical fall leading to titanium plate on face and 20 screws Family History Father: 19 years ago from cancer Mother: Alive without known medical disease Social History * Smoker: current smoker (Smoked since 13yo. 1ppd) Alcohol: Denies Drugs: denies A-FIB/CHADSVASC A-FIB History Current/History of A-Fib/PAF?: No Review of Systems Constitutional: Reports: Fever (intermittent, last yesterday); Denies: Chills Eyes: Denies: Vision change ENT: Reports: Sore Throat Skin: Denies: Rash Pulmonary: Reports: Dyspnea, Cough (clear sputum), Pleuritic Chest Pain Cardiovascular: Reports: Other Symptoms (Sharp pain with breathing deep) Gastrointestinal: Reports: Diarrhea (soft), Other Symptoms (Poor appetite); Denies: Nausea, Abdominal Pain Genitourinary: Denies: Dysuria Hematologic: Denies: Bruising Neurological: Denies: Numbness Psych: Denies: Anxiety, Depression Physical Examination General Exam: Positive: Alert, Cooperative Eye Exam: Positive: EOMI; Negative: Sclera icteric ENT Exam: Positive: Atraumatic Neck Exam: Positive: Supple Chest Exam: Positive: Clear to auscultation Heart Exam: Positive: Tachycardic, Regular Rhythm Abdomen Exam: Positive: Normal bowel sounds, Soft; Negative: Tenderness Extremity Exam: Negative: Edema Neuro Exam: Positive: Normal Speech, Strength at 5/5 X4 ext Psych Exam: Positive: Mental status NL, Mood NL Vital Signs Vital Signs Date Time Temp Pulse Resp B/P (MAP) Pulse Ox O2 Delivery O2 Flow Rate FiO2 03/14/21 15:25 Room Air 03/14/21 15:23 97 03/14/21 10:02 97.6 111 18 128/87 (101) Laboratory Data Labs 24H Laboratory Tests 2 03/14/21 14:17: Immature Granulocyte % (Auto) 0.3, Neutrophils (%) (Auto) 69.8H, Lymphocytes (%) (Auto) 17.8L, Monocytes (%) (Auto) 10.5H, Eosinophils (%) (Auto) 1.4, Basophils (%) (Auto) 0.2, Neutrophils # (Auto) 6.1, Lymphocytes # (Auto) 1.5, Monocytes # (Auto) 0.9H, Eosinophils # (Auto) 0.1, Basophils # (Auto) 0.0, Nucleated Red Blood Cells % (auto) 0.0, Anion Gap 6L, Glomerular Filtration Rate 56.4, Calcium Level 8.0L, Total Bilirubin 0.2, Direct Bilirubin < 0.1, Aspartate Amino Transf (AST/SGOT) 10, Alanine Aminotransferase (ALT/SGPT) 13, Alkaline Phosphatase 60, ZP-Ori-Q-Type Natriuretic Peptide 121, Total Protein 5.2L, Albumin 1.4L, Albumin/Globulin Ratio 0.4, Lipase 91, Thyroid Stimulating Hormone (TSH) 2.060, Free Thyroxine 0.95 03/14/21 14:37: POC Troponin I (Misc) 0.00 03/14/21 16:36: Prothrombin Time 14.1H, Prothromb Time International Ratio 1.05, Activated Partial Thromboplast Time 38.5H 03/14/21 16:53: CBC/BMP Laboratory Tests 03/14/21 14:17 Microbiology Microbiology 03/14/21 Blood Culture, Received Pending Assessment/Plan Mr. Cortes is a 50 year old male with COVID who is here with worsening shortness of breath. He was found to have multiple left lower embolic without hypoxia or right heart strain. Denies any recent travel, surgery, or hospitalization. Most likely provoked from COVID. Will initiate anticoagulation with Lovenox. If he does well overnight, he would be able to transition to DOAC. Otherwise, there is right upper and left lower infiltrate. Will start on antibiotics and obtain procalcitonin. If procalcitonin is negative, this is most likely viral pneumonia and antibiotics can be stopped. Otherwise, patient may need to be ambulated tomorrow morning to see if his oxygen drops. Due to COVID infection and PE will hold off of IVF. If creatinine continues to rise, patient may need IVF. Until then, encourage oral intake of fluids. Plan / VTE VTE Prophylaxis Ordered?: Yes Plan Plan 1. Provoked PE -Most likely provoked from COVID -Denies any recent travel, surgery, or hospitalization -Start with full dose heparin -If does well tomorrow, can consider DOAC -May need to be ambulated to see if patient requires oxygen with activity 2. COVID infection -Procalcitonin ordered -If negative, antibiotics can be discontinued -Otherwise, Ceftriaxone and Doxycycline empirically started 3. Questionable history of DM -Blood glucose low, but patient does have poor appetite from COVID infection -Check HbA1c 4. Questionable history of hypertension -Blood pressure controlled without medication -Monitor blood pressure 5. Dehydration -Due to poor appetite -Creatinine 1.41 -Encourage oral intake of fluids -If creatinine continues to rise, may need IVF 6. Low albumin -Albumin 1.4 7. DVT ppx -Full dose Lovenox and aspirin Disposition: Can consider switching to DOAC tomorrow. If patient is hypoxic with ambulation, patient may need home oxygen. BUDDY BREWER DO Mar 14, 2021 17:58
[2021-03-14 18:44] LABS: FIBRINOGEN 1113 MG/DL (268-480)
[2021-03-14 18:44] LABS: CREATININE FOR GFR 1.33 MG/DL (0.70-1.30); GLOMERULAR FILTRATION RATE > 60.0 (>56)
[2021-03-14 19:01] LABS: D-DIMER QUANT > 4000 ng/ml (<500)
[2021-03-14 20:00] VITALS: O2SAT 95
[2021-03-14] MEDS ORDERED: cefTRIAXone SOD 1 GM in D5W MINI-BAG PLUS 50 ML IV SCH (20:00)
[2021-03-14 22:17] VITALS: BP 138/92
[2021-03-14] MEDS: DOXYCYCLINE HYCLATE 100 MG in D5W MINI-BAG PLUS 100 ML IV SCH (22:48)
[2021-03-15] VITALS: O2SAT 96
[2021-03-15] MEDS ORDERED: FAMOTIDINE 20 MG TAB PO SCH (00:10)
[2021-03-15 04:00] VITALS: BP 118/80; O2SAT 96
[2021-03-15] MEDS ORDERED: ENOXAPARIN 100MG/1ML SYRINGE (J1650 PER 10MG) SC SCH (06:00)
[2021-03-15 07:41] LABS: BASO % 0.4 % (0.0-1.0); EOS # 0.1 10^3/uL (0.0-0.5); EOS % 1.6 % (0.0-3.0); HEMOGLOBIN 11.2 g/dl (13.5-17.5); LYMPH # 1.2 10^3/uL (1.5-5.0); LYMPH % 17.5 % (24.0-44.0); MEAN CORPUSCULAR HEMOGLOBIN 28.9 pg (27.0-33.0); MEAN CORPUSCULAR HGB CONC 33.9 g/dl (32.0-36.5); MEAN CORPUSCULAR VOLUME 85.3 fl (80.0-96.0); MONO # 0.7 10^3/uL (0.0-0.8); MONO % 10.3 % (2.0-8.0); NEUTROPHILS # 4.9 10^3/uL (1.5-8.5); NEUTROPHILS % 69.6 % (36.0-66.0); PLATELET COUNT, AUTOMATED 213 10^3/uL (150-450); RED BLOOD COUNT 3.87 10^6/uL (4.30-6.10); WHITE BLOOD COUNT 7.1 10^3/uL (4.0-10.0)
[2021-03-15 08:00] VITALS: O2SAT 95
[2021-03-15 08:05] LABS: BLOOD UREA NITROGEN 18 MG/DL (7-18); CALCIUM LEVEL 7.6 MG/DL (8.5-10.1); CARBON DIOXIDE LEVEL 24 MEQ/L (21-32); CHLORIDE LEVEL 109 MEQ/L (98-107); CREATININE FOR GFR 1.26 MG/DL (0.70-1.30); GLOMERULAR FILTRATION RATE > 60.0 (>56); GLUCOSE, FASTING 117 MG/DL (70-100); MAGNESIUM LEVEL 2.5 MG/DL (1.8-2.4); POTASSIUM SERUM 3.5 MEQ/L (3.5-5.1); SODIUM LEVEL 140 MEQ/L (136-145)
[2021-03-15] MEDS: DOXYCYCLINE HYCLATE 100 MG in D5W MINI-BAG PLUS 100 ML IV SCH (08:19)
[2021-03-15] MEDS ORDERED: ASPIRIN 81MG ENTERIC TABLET PO SCH (09:00)
[2021-03-15] MEDS ORDERED: LACTOBACILLUS ACIDOPHILUS CAP (BACID) PO SCH (09:00)
[2021-03-15 09:06] LABS: HEMOGLOBIN A1c 6.7 %
--- NOTE | 2021-03-15 10:58 | DS.PDOC ---
Discharge Summary General Date of Admission Mar 14, 2021 at 09:45 Date of Discharge 03/15/2021 Attending Physician: LAMONT HERNANDEZ MD Discharge Summary PROCEDURES PERFORMED DURING STAY: None ADMITTING DIAGNOSES: PE DISCHARGE DIAGNOSES: PE recent covid-19 infection DM HTN COMPLICATIONS/CHIEF COMPLAINT: Pulmonary Embolism. HISTORY OF PRESENT ILLNESS: 50 year old M with COVID-19 who is here with worsening shortness of breath. He reportedly had COVID symptoms started Feb 28, 2021. He tested positive on Mar 04, 2021 at urgent care. He was put on quarantine. He was getting better, but then on Mar 11, 2021, he started have worsening SOB. He came into the ED for evaluation. HOSPITAL COURSE: While in the ED, he was afebrile and non-hypoxic. He was doing well at room air (97%) but did have sinus tachycardia. He had a CT angio chest which demonstrated multiple pulmonary emboli in the segmental branches of the lingula and left lower lobe, without right heart strain. They were also patchy right upper and left lower lobe infiltrates. He was admitted for a PE. He was started on therapeutic lovenox and is now being discharged home on eliquis. DISCHARGE MEDICATIONS: Please see below. ALLERGIES: Please see below. PHYSICAL EXAMINATION ON DISCHARGE: VITAL SIGNS: Please see below. GENERAL: NAD HEENT: NCAT, EOMI, MMM NECK: supple CARDIOVASCULAR EXAMINATION: RRR, no m/r/g RESPIRATORY EXAMINATION: CTAB, diminished throughout, no wheezing or rhonchi ABDOMINAL EXAMINATION: Normoactive bowel sounds, soft, NTND EXTREMITIES: WWP, no LE edema noted NEUROLOGICAL EXAMINATION: CN3-12 intact, grossly nonfocal examination PSYCHIATRIC EXAMINATION: AOx3 LABORATORY DATA: Please see below. IMAGING: CTA chest: Lungs: There is patchy right upper lobe infiltrate as well as left lower lobe infiltrate. Mediastinum: No adenopathy. Pulmonary arteries: There are multiple pulmonary emboli within segmental branches of the lingula and left lower lobe. Right ventricle is normal in size, with no evidence of right heart strain. Maryan: No adenopathy. Axilla: No adenopathy. Pleura: There are tiny bilateral effusions. Heart: Upper limits of normal in size. Thoracic aorta: No aneurysm or dissection. Upper abdominal structures: Small hiatal hernia. Visualized osseous structures: There are degenerative changes of the spine without compression deformity. IMPRESSION: Multiple pulmonary emboli are seen in segmental branches of the lingula and left lower lobe. No evidence of right heart strain. Patchy right upper and left lower lobe infiltrates. Tiny bilateral pleural effusions. PROGNOSIS: Good ACTIVITY: As tolerated DIET: consistent carb DISCHARGE PLAN: Home DISPOSITION: Home DISCHARGE INSTRUCTIONS: Home with close PCP appt within 7d and eliquis for at least 3m, to follow up with PCP on duration. ITEMS TO FOLLOWUP ON ON OUTPATIENT: PE i/s/o covid-19 infection covid-19 infection DISCHARGE CONDITION: Stable TIME SPENT ON DISCHARGE: 44 minutes. Vital Signs/I&Os Vital Signs Date Time Temp Pulse Resp B/P (MAP) Pulse Ox O2 Delivery O2 Flow Rate FiO2 03/15/21 04:00 97.6 94 18 118/80 (93) 96 Room Air I&O- Last 24 Hours up to 6 AM 03/15/21 06:00 Intake Total 540 ml Balance 540 ml Laboratory Data Labs 24H Laboratory Tests 2 03/14/21 14:17: Immature Granulocyte % (Auto) 0.3, Neutrophils (%) (Auto) 69.8H, Lymphocytes (%) (Auto) 17.8L, Monocytes (%) (Auto) 10.5H, Eosinophils (%) (Auto) 1.4, Basophils (%) (Auto) 0.2, Neutrophils # (Auto) 6.1, Lymphocytes # (Auto) 1.5, Monocytes # (Auto) 0.9H, Eosinophils # (Auto) 0.1, Basophils # (Auto) 0.0, Nucleated Red Blood Cells % (auto) 0.0, Anion Gap 6L, Glomerular Filtration Rate 56.4, Calcium Level 8.0L, Total Bilirubin 0.2, Direct Bilirubin < 0.1, Aspartate Amino Transf (AST/SGOT) 10, Alanine Aminotransferase (ALT/SGPT) 13, Alkaline Phosphatase 60, RS-Sug-W-Type Natriuretic Peptide 121, Total Protein 5.2L, Albumin 1.4L, Albumin/Globulin Ratio 0.4, Lipase 91, Thyroid Stimulating Hormone (TSH) 2.060, Free Thyroxine 0.95 03/14/21 14:37: POC Troponin I (Misc) 0.00 03/14/21 16:36: Prothrombin Time 14.1H, Prothromb Time International Ratio 1.05, Activated Partial Thromboplast Time 38.5H, Fibrinogen 1113H, D-Dimer, Quantitative > 4000H 03/14/21 16:53: Glomerular Filtration Rate > 60.0, Ferritin 334, Lactate Dehydrogenase 176, C- Reactive Protein, Quantitative 16.20H, Procalcitonin 0.14 03/14/21 17:13: Total Creatine Kinase 40 03/14/21 19:04: 03/15/21 06:50: Immature Granulocyte % (Auto) 0.6, Neutrophils (%) (Auto) 69.6H, Lymphocytes (%) (Auto) 17.5L, Monocytes (%) (Auto) 10.3H, Eosinophils (%) (Auto) 1.6, Basophils (%) (Auto) 0.4, Neutrophils # (Auto) 4.9, Lymphocytes # (Auto) 1.2L, Monocytes # (Auto) 0.7, Eosinophils # (Auto) 0.1, Basophils # (Auto) 0.0, Nucleated Red Blood Cells % (auto) 0.0, Anion Gap 7L, Glomerular Filtration Rate > 60.0, Est imated Mean Plasma Glucose 146H, Hemoglobin A1c 6.7, Calcium Level 7.6L, Magnesium Level 2.5H CBC/BMP Laboratory Tests 03/14/21 14:17 03/14/21 16:53 03/15/21 06:50 Microbiology Microbiology 03/14/21 Blood Culture, Received Pending 03/14/21 Respiratory Virus Panel (PCR) (PHYLLIS) - Final, Complete 03/14/21 Blood Culture, Received Pending Discharge Medications No Active Prescriptions or Reported Meds Allergies Coded Allergies: No Known Allergies (Unverified , 09/18/19) LAMONT HERNANDEZ MD Mar 15, 2021 10:58
[2021-03-15] MEDS ORDERED: ELIQ5TAB PO (11:03)
[2021-03-15] MEDS ORDERED: TESS100C PO (11:03)
[2021-03-15] MEDS ORDERED: RISATAB3 PO (11:03)
[2021-03-15] MEDS ORDERED: FAMO20TA PO (11:03)
[2021-03-15] MEDS ORDERED: ALBU8.5H INH (11:03)
--- NOTE | 2021-03-16 10:11 | ECGEPIP ---
[facility] - ED Test Date: 2021-03-14 Pat Name: NAKITA ABEBE Department: Room: - Gender: Male Bolt Sorter: MALIHA : 1970 Requested By: FLORIN Jimenes Order Number: [id number] Reading MD: Florin Restrepo Measurements Intervals [place] Rate: 109 P: 22 KS: 158 QRS: 33 QRSD: 96 T: 43 QT: 332 QTc: 447 Interpretive Statements Sinus tachycardia Comparison tracing not on file Electronically Signed on 03-16-2021 10:10:38 EST by Florin Restrepo
[2021-03-16 15:10] LABS: MYCOPLASMA PNEUMONIAE IgG 288 U/mL (0-99); MYCOPLASMA PNEUMONIAE IgM <770 U/mL (0-769)
== END 2021-03-15 13:41 | disposition home or self-care (01) ==
LOC: M ED 09:44 → M ED INP 09:45 → M 4MAIN 22:17
PROVIDERS: ADMIT Internal Medicine; ATTEND Internal Medicine
DX: I26.94 Multiple subsegmental thrombotic pulmonary emboli without acute cor pulmonale (principal); Z86.16 Personal history of COVID-19; R91.8 Other nonspecific abnormal finding of lung field; R00.0 Tachycardia, unspecified; E11.9 Type 2 diabetes mellitus without complications; E86.0 Dehydration; R77.0 Abnormality of albumin; I10 Essential (primary) hypertension; F17.210 Nicotine dependence, cigarettes, uncomplicated; Z79.01 Long term (current) use of anticoagulants
CPT/HCPCS: 36415; 71275; 80048; 80076; 82550; 82565; 82728; 83036; 83615; 83690; 83735; 83880; 84145; 84439; 84443; 84484; 85025; 85379; 85384; 85610; 85730; 86140; 86738; 87040; 87798; 93005; 93041; 94760; 96372; 96374; 96375; 96376; 99285; J0696; J1650; Q9967

== ENCOUNTER 2021-03-28 09:30 | Inpatient (IN) | payer OTHER ==
[~2021-03-28] VITALS: Ht 193 cm; Wt 98.9 kg
[~2021-03-28 09:30] MED LIST changes: +ALBU8.5H INH; +ELIQ5TAB PO; +FAMO20TA PO; +RISATAB3 PO; +TESS100C PO
[2021-03-28] MEDS ORDERED: ISOVUE-370 76% 100ML VIAL As Ordered ONE (10:17)
[2021-03-28 10:45] LABS: BASO % 0.6 % (0.0-1.0); EOS # 0.4 10^3/uL (0.0-0.5); EOS % 6.6 % (0.0-3.0); HEMATOCRIT 35.2 % (42.0-52.0); HEMOGLOBIN 11.8 g/dl (13.5-17.5); LYMPH # 1.7 10^3/uL (1.5-5.0); MEAN CORPUSCULAR HGB CONC 33.5 g/dl (32.0-36.5); MEAN CORPUSCULAR VOLUME 86.5 fl (80.0-96.0); MONO # 0.5 10^3/uL (0.0-0.8); MONO % 6.9 % (2.0-8.0); NEUTROPHILS # 3.9 10^3/uL (1.5-8.5); NEUTROPHILS % 59.4 % (36.0-66.0); PLATELET COUNT, AUTOMATED 366 10^3/uL (150-450); RED BLOOD COUNT 4.07 10^6/uL (4.30-6.10); WHITE BLOOD COUNT 6.6 10^3/uL (4.0-10.0)
[2021-03-28 10:51] LABS: INR 0.96; PROTHROMBIN TIME 13.2 SECONDS (12.7-14.5)
[2021-03-28 11:18] LABS: CK-MB VALUE MASS < 1.0 NG/ML (<3.6); CPK CREATINE PHOSPHOKINASE 77 U/L (39-308)
[2021-03-28 12:09] LABS: RSV AMPLIFICATION NEGATIVE (NEGATIVE)
[2021-03-28] MEDS ORDERED: ELIQ5TAB PO (13:05)
[2021-03-28] MEDS ORDERED: FAMO1TAB11 PO (13:05)
[2021-03-28] MEDS ORDERED: BENZ-18 PO (13:05)
[2021-03-28] MEDS ORDERED: VENTAER INH (13:05)
[2021-03-28] MEDS ORDERED: ACET500T15 PO (13:05)
[2021-03-28] MEDS ORDERED: HOME MED LIST COMPLETE! XX SCH (13:10)
[2021-03-28] MEDS: ACETAMINOPHEN 500 MG TAB PO PRN (17:20)
[2021-03-28 18:29] VITALS: BP 136/90
[2021-03-28 20:00] VITALS: BP 152/86
[2021-03-28] MEDS: FAMOTIDINE 20 MG TAB PO SCH (20:11)
[2021-03-28] MEDS: APIXABAN 5 MG TAB (ELIQUIS) PO SCH (20:11)
[2021-03-28] MEDS: traMADol 50 MG TAB PO PRN (21:00)
[2021-03-29] MEDS: traMADol 50 MG TAB PO PRN ×4 (01:58→21:13)
[2021-03-29 04:00] VITALS: BP 129/80
[2021-03-29] MEDS: APIXABAN 5 MG TAB (ELIQUIS) PO SCH (08:35)
[2021-03-29 11:53] LABS: HEMATOCRIT 33.3 % (42.0-52.0); HEMOGLOBIN 11.3 g/dl (13.5-17.5); MEAN CORPUSCULAR HEMOGLOBIN 29.4 pg (27.0-33.0); MEAN CORPUSCULAR HGB CONC 33.9 g/dl (32.0-36.5); MEAN CORPUSCULAR VOLUME 86.5 fl (80.0-96.0); PLATELET COUNT, AUTOMATED 341 10^3/uL (150-450); RED BLOOD COUNT 3.85 10^6/uL (4.30-6.10); WHITE BLOOD COUNT 5.5 10^3/uL (4.0-10.0)
[2021-03-29 12:22] LABS: BLOOD UREA NITROGEN 17 MG/DL (7-18); C REACTIVE PROTEIN QUANTITATIV 0.64 MG/DL (0.00-0.30); CALCIUM LEVEL 8.1 MG/DL (8.5-10.1); CARBON DIOXIDE LEVEL 26 MEQ/L (21-32); CHLORIDE LEVEL 112 MEQ/L (98-107); CREATININE FOR GFR 1.12 MG/DL (0.70-1.30); GLOMERULAR FILTRATION RATE > 60.0 (>56); GLUCOSE, FASTING 139 MG/DL (70-100); POTASSIUM SERUM 3.7 MEQ/L (3.5-5.1); SODIUM LEVEL 142 MEQ/L (136-145)
[2021-03-29 12:31] LABS: ERYTHROCYTE SEDIMENTATION RATE > 140 mm/hr (0-20)
[2021-03-29 14:00] VITALS: BP 133/79
[2021-03-29 20:00] VITALS: BP 119/70
[2021-03-29] MEDS ORDERED: HEPARIN SOD (PORCINE) 5000UNITS/ML 1ML VIAL/SYRINGE IV PRN (21:00)
[2021-03-29] MEDS: HEPARIN DRIP 25,000 UNITS in IV 1 EA IV SCH (21:09)
[2021-03-29] MEDS: FAMOTIDINE 20 MG TAB PO SCH (21:13)
[2021-03-30] MEDS: traMADol 50 MG TAB PO PRN ×4 (03:09→21:41)
[2021-03-30 04:00] VITALS: BP_SYST 127; BP_SYST 131; BP_DIAS 79; BP_DIAS 82
[2021-03-30 07:15] LABS: HEMATOCRIT 33.1 % (42.0-52.0); HEMOGLOBIN 11.3 g/dl (13.5-17.5); MEAN CORPUSCULAR HEMOGLOBIN 29.3 pg (27.0-33.0); MEAN CORPUSCULAR HGB CONC 34.1 g/dl (32.0-36.5); MEAN CORPUSCULAR VOLUME 85.8 fl (80.0-96.0); PLATELET COUNT, AUTOMATED 306 10^3/uL (150-450); RED BLOOD COUNT 3.86 10^6/uL (4.30-6.10); WHITE BLOOD COUNT 6.6 10^3/uL (4.0-10.0)
[2021-03-30 07:37] LABS: BLOOD UREA NITROGEN 14 MG/DL (7-18); CALCIUM LEVEL 7.8 MG/DL (8.5-10.1); CARBON DIOXIDE LEVEL 25 MEQ/L (21-32); CHLORIDE LEVEL 110 MEQ/L (98-107); CREATININE FOR GFR 1.06 MG/DL (0.70-1.30); GLOMERULAR FILTRATION RATE > 60.0 (>56); GLUCOSE, FASTING 111 MG/DL (70-100); MAGNESIUM LEVEL 2.1 MG/DL (1.8-2.4); POTASSIUM SERUM 3.2 MEQ/L (3.5-5.1); SODIUM LEVEL 140 MEQ/L (136-145)
[2021-03-30] MEDS ORDERED: POTASSIUM CHLORIDE 10MEQ SR TABLET PO ONE (08:00)
[2021-03-30] MEDS: HEPARIN DRIP 25,000 UNITS in IV 1 EA IV SCH (12:55)
[2021-03-30] MEDS: ACETAMINOPHEN 500 MG TAB PO PRN (13:01)
[2021-03-30 14:00] VITALS: BP 111/64
[2021-03-30 20:00] VITALS: BP 138/84
[2021-03-30] MEDS: FAMOTIDINE 20 MG TAB PO SCH (21:41)
[2021-03-31] MEDS: HEPARIN DRIP 25,000 UNITS in IV 1 EA IV SCH (02:48)
[2021-03-31] MEDS: traMADol 50 MG TAB PO PRN (02:56)
[2021-03-31 06:00] VITALS: BP 140/81
[2021-03-31 07:16] LABS: HEMATOCRIT 35.2 % (42.0-52.0); HEMOGLOBIN 11.8 g/dl (13.5-17.5); MEAN CORPUSCULAR HEMOGLOBIN 29.1 pg (27.0-33.0); MEAN CORPUSCULAR HGB CONC 33.5 g/dl (32.0-36.5); MEAN CORPUSCULAR VOLUME 86.7 fl (80.0-96.0); PLATELET COUNT, AUTOMATED 312 10^3/uL (150-450); RED BLOOD COUNT 4.06 10^6/uL (4.30-6.10); WHITE BLOOD COUNT 5.5 10^3/uL (4.0-10.0)
[2021-03-31 07:36] LABS: BLOOD UREA NITROGEN 16 MG/DL (7-18); CALCIUM LEVEL 8.1 MG/DL (8.5-10.1); CARBON DIOXIDE LEVEL 26 MEQ/L (21-32); CHLORIDE LEVEL 112 MEQ/L (98-107); CREATININE FOR GFR 1.18 MG/DL (0.70-1.30); GLOMERULAR FILTRATION RATE > 60.0 (>56); GLUCOSE, FASTING 116 MG/DL (70-100); MAGNESIUM LEVEL 2.3 MG/DL (1.8-2.4); POTASSIUM SERUM 3.5 MEQ/L (3.5-5.1); SODIUM LEVEL 141 MEQ/L (136-145)
[2021-03-31] MEDS ORDERED: MIDAZOLAM INJ 2MG/2ML VIAL (J2250 PER 1MG) As Ordered ONE (13:17)
[2021-03-31] MEDS ORDERED: fentaNYL 100 MCG/2 ML INJECTION As Ordered ONE (13:17)
[2021-03-31] MEDS ORDERED: LIDOCAINE 1% SDV 30ML VIAL As Ordered ONE (13:50)
[2021-03-31 15:00] VITALS: BP 163/100
[2021-03-31 15:15] VITALS: BP 158/99
[2021-03-31 16:00] VITALS: BP 139/79
[2021-03-31] MEDS ORDERED: PRED20TA PO (16:00)
[2021-03-31] MEDS ORDERED: PROT1TAB2 PO (16:01)
== END 2021-03-31 17:25 | disposition home or self-care (01) | DRG 517 ==
LOC: M ED 09:30 → M ED INP 09:31 → ENRESERV 14:35 → M 4MAIN 17:58 → OBSVTOIN 03-29 20:16
PROVIDERS: ADMIT Internal Medicine Nephrology; ATTEND Internal Medicine
PROC: 03BT0ZX Excision of Left Temporal Artery, Open Approach, Diagnostic (ICD-10-PCS; principal; 2021-03-31 13:30)
DX: M31.6 Other giant cell arteritis (principal); E11.9 Type 2 diabetes mellitus without complications; I10 Essential (primary) hypertension; H53.2 Diplopia; H49.22 Sixth [abducent] nerve palsy, left eye; G70.00 Myasthenia gravis without (acute) exacerbation; U09.9 Post COVID-19 condition, unspecified; Z86.711 Personal history of pulmonary embolism; Z79.01 Long term (current) use of anticoagulants; Z79.52 Long term (current) use of systemic steroids; Z79.899 Other long term (current) drug therapy

== ENCOUNTER → 2021-04-14 | Outpatient (CLI) | payer OTHER ==
[~2021-04-14] MED LIST changes: +ACET500T15 PO; +BENZ-18 PO; +FAMO1TAB11 PO; +PROT1TAB2 PO; +VENTAER INH
== END ==
LOC: M PLALAB 09:27
PROVIDERS: ATTEND Student in an Organized Health Care Education/Training Program
DX: H53.2 Diplopia (principal)

== ENCOUNTER → 2021-04-20 | Outpatient (CLI) | payer OTHER ==
[2021-04-20 15:52] LABS: BASO % 0.3 % (0.0-1.0); EOS # 0.2 10^3/uL (0.0-0.5); EOS % 1.5 % (0.0-3.0); HEMATOCRIT 37.8 % (42.0-52.0); HEMOGLOBIN 12.3 g/dl (13.5-17.5); LYMPH # 1.2 10^3/uL (1.5-5.0); LYMPH % 11.3 % (24.0-44.0); MEAN CORPUSCULAR HEMOGLOBIN 28.9 pg (27.0-33.0); MEAN CORPUSCULAR HGB CONC 32.5 g/dl (32.0-36.5); MEAN CORPUSCULAR VOLUME 88.9 fl (80.0-96.0); MONO # 0.3 10^3/uL (0.0-0.8); MONO % 2.7 % (2.0-8.0); NEUTROPHILS # 9.2 10^3/uL (1.5-8.5); NEUTROPHILS % 83.4 % (36.0-66.0); PLATELET COUNT, AUTOMATED 215 10^3/uL (150-450); RED BLOOD COUNT 4.25 10^6/uL (4.30-6.10)
[2021-04-20 17:15] LABS: ALBUMIN 1.7 GM/DL (3.2-5.2); ALT/SGPT 14 U/L (12-78); BILIRUBIN,TOTAL < 0.1 MG/DL (0.2-1.0); BLOOD UREA NITROGEN 20 MG/DL (7-18); C REACTIVE PROTEIN QUANTITATIV 1.49 MG/DL (0.00-0.30); CARBON DIOXIDE LEVEL 28 MEQ/L (21-32); CHLORIDE LEVEL 106 MEQ/L (98-107); CHOLESTEROL LEVEL 302 MG/DL (< 200); CPK CREATINE PHOSPHOKINASE 63 U/L (39-308); CREATININE FOR GFR 1.36 MG/DL (0.70-1.30); GLOMERULAR FILTRATION RATE 58.6 (>56); GLUCOSE, FASTING 182 MG/DL (70-100); LDH LACTATE DEHYDROGENASE 145 U/L (87-241); PHOSPHORUS LEVEL 5.3 MG/DL (2.5-4.9); POTASSIUM SERUM 4.6 MEQ/L (3.5-5.1); RHEUMATOID FACTOR QUANT < 10.0 IU/ML (<15.0); SODIUM LEVEL 141 MEQ/L (136-145); TOTAL PROTEIN 4.5 GM/DL (6.4-8.2); TRIGLYCERIDES LEVEL 289 MG/DL (<150)
[2021-04-20 21:24] LABS: ERYTHROCYTE SEDIMENTATION RATE 85 mm/hr (0-20)
== END ==
LOC: M PLALAB 14:01
PROVIDERS: ATTEND Physician Assistant
DX: H49.22 Sixth [abducent] nerve palsy, left eye (principal)

== ENCOUNTER 2021-05-10 16:13 | Emergency (ER) | payer OTHER ==
[~2021-05-10] VITALS: Ht 188 cm; Wt 106.8 kg
[2021-05-10 21:25] VITALS: BP 147/87
== END 2021-05-10 21:27 | disposition home or self-care (01) ==
LOC: M ED 16:13
DX: G52.9 Cranial nerve disorder, unspecified (principal); R70.0 Elevated erythrocyte sedimentation rate; Z86.16 Personal history of COVID-19; Z86.711 Personal history of pulmonary embolism; F17.200 Nicotine dependence, unspecified, uncomplicated; Z79.01 Long term (current) use of anticoagulants; Z79.899 Other long term (current) drug therapy

== ENCOUNTER → 2021-05-10 | Outpatient (CLI) | payer OTHER | LOC: M PLALAB 09:46 | PROVIDERS: ATTEND Student in an Organized Health Care Education/Training Program | DX: H49.22 Sixth [abducent] nerve palsy, left eye (principal) ==

== ENCOUNTER → 2021-05-19 | Outpatient (CLI) | payer OTHER ==
[2021-05-19 14:03] LABS: BASO % 0.5 % (0.0-1.0); EOS # 0.1 10^3/uL (0.0-0.5); EOS % 1.7 % (0.0-3.0); HEMATOCRIT 38.4 % (42.0-52.0); HEMOGLOBIN 12.5 g/dl (13.5-17.5); LYMPH # 1.8 10^3/uL (1.5-5.0); MEAN CORPUSCULAR HEMOGLOBIN 29.2 pg (27.0-33.0); MEAN CORPUSCULAR HGB CONC 32.6 g/dl (32.0-36.5); MEAN CORPUSCULAR VOLUME 89.7 fl (80.0-96.0); MONO # 0.5 10^3/uL (0.0-0.8); MONO % 7.8 % (2.0-8.0); NEUTROPHILS # 3.6 10^3/uL (1.5-8.5); NEUTROPHILS % 59.7 % (36.0-66.0); PLATELET COUNT, AUTOMATED 244 10^3/uL (150-450); RED BLOOD COUNT 4.28 10^6/uL (4.30-6.10); WHITE BLOOD COUNT 6.1 10^3/uL (4.0-10.0)
[2021-05-19 14:15] LABS: C REACTIVE PROTEIN QUANTITATIV 0.64 MG/DL (0.00-0.30); COMPLEMENT C3 139 MG/DL (90-180); COMPLEMENT C4 32 MG/DL (10-40); RHEUMATOID FACTOR QUANT < 10.0 IU/ML (<15.0)
== END ==
LOC: M PLALAB 09:44
PROVIDERS: ATTEND Student in an Organized Health Care Education/Training Program
DX: H49.22 Sixth [abducent] nerve palsy, left eye (principal)

== ENCOUNTER → 2021-06-07 | Outpatient (CLI) | payer OTHER ==
[2021-06-07 17:10] LABS: BASO # 0.1 10^3/uL (0.0-0.2); BASO % 0.5 % (0.0-1.0); EOS # 0.2 10^3/uL (0.0-0.5); EOS % 1.8 % (0.0-3.0); HEMATOCRIT 40.6 % (42.0-52.0); HEMOGLOBIN 13.7 g/dl (13.5-17.5); LYMPH # 2.6 10^3/uL (1.5-5.0); LYMPH % 27.7 % (24.0-44.0); MEAN CORPUSCULAR HEMOGLOBIN 29.7 pg (27.0-33.0); MEAN CORPUSCULAR HGB CONC 33.7 g/dl (32.0-36.5); MEAN CORPUSCULAR VOLUME 88.1 fl (80.0-96.0); MONO # 0.7 10^3/uL (0.0-0.8); MONO % 7.3 % (2.0-8.0); NEUTROPHILS # 5.9 10^3/uL (1.5-8.5); NEUTROPHILS % 62.3 % (36.0-66.0); PLATELET COUNT, AUTOMATED 284 10^3/uL (150-450); RED BLOOD COUNT 4.61 10^6/uL (4.30-6.10); WHITE BLOOD COUNT 9.4 10^3/uL (4.0-10.0)
[2021-06-07 17:20] LABS: INR 0.87; PROTHROMBIN TIME 12.2 SECONDS (12.7-14.5)
[2021-06-07 17:21] LABS: PARTIAL THROMBOPLASTIN TIME 30.2 SECONDS (25.9-37.0)
[2021-06-07 17:50] LABS: ALT/SGPT 21 U/L (12-78); BILIRUBIN,TOTAL 0.1 MG/DL (0.2-1.0); BLOOD UREA NITROGEN 24 MG/DL (7-18); C REACTIVE PROTEIN QUANTITATIV 0.38 MG/DL (0.00-0.30); CALCIUM LEVEL 8.8 MG/DL (8.5-10.1); CARBON DIOXIDE LEVEL 28 MEQ/L (21-32); CHLORIDE LEVEL 110 MEQ/L (98-107); CREATININE FOR GFR 1.33 MG/DL (0.70-1.30); GLOMERULAR FILTRATION RATE > 60.0 (>56); GLUCOSE, FASTING 115 MG/DL (70-100); POTASSIUM SERUM 4.1 MEQ/L (3.5-5.1); SODIUM LEVEL 143 MEQ/L (136-145); TOTAL PROTEIN 4.6 GM/DL (6.4-8.2)
[2021-06-07 18:21] LABS: ERYTHROCYTE SEDIMENTATION RATE 61 mm/hr (0-20)
[2021-06-07 19:19] LABS: VITAMIN B12 LEVEL 586 PG/ML (247-911)
== END ==
LOC: M PLALAB 15:56
PROVIDERS: ATTEND Student in an Organized Health Care Education/Training Program
DX: M31.6 Other giant cell arteritis (principal)

== ENCOUNTER → 2021-06-28 | Outpatient (CLI) | payer OTHER | LOC: M WHC 06:59 → M RAD 06:59 | PROVIDERS: ATTEND Student in an Organized Health Care Education/Training Program | DX: R79.89 Other specified abnormal findings of blood chemistry (principal) ==

== ENCOUNTER → 2023-02-16 | Outpatient (CLI) | payer OTHER | LOC: M RAD 11:29 | PROVIDERS: ATTEND Physician Assistant | DX: F17.210 Nicotine dependence, cigarettes, uncomplicated (principal) ==

== ENCOUNTER 2023-07-23 14:08 | Emergency (ER) | payer OTHER ==
[~2023-07-23] VITALS: Ht 188 cm; Wt 95.3 kg
[2023-07-23 18:46] VITALS: BP 162/86; TEMP 97.4; O2SAT 100
[2023-07-23] MEDS: FLUORESCEIN OPHTH 1MG STRIP OD ONE (20:00)
[2023-07-23] MEDS: TETRACAINE 0.5% OPHTH SOLN 4ML OD ONE (20:00)
[2023-07-23] MEDS ORDERED: OCUF0.25 OD (20:25)
[2023-07-23] MEDS: OFLOXACIN 0.3 % (OCUFLOX) OPTH SOL 5ML OD STA (20:36)
== END 2023-07-23 20:38 | disposition home or self-care (01) ==
LOC: M ED 14:08
DX: H10.31 Unspecified acute conjunctivitis, right eye (principal); E11.9 Type 2 diabetes mellitus without complications; R51.9 Headache, unspecified; F17.210 Nicotine dependence, cigarettes, uncomplicated; Z79.51 Long term (current) use of inhaled steroids; Z79.899 Other long term (current) drug therapy; Z79.52 Long term (current) use of systemic steroids